=== PATIENT | female | born 1940 | race Caucasian/White ===

== ENCOUNTER 2017-01-17 16:49 | Inpatient (IN) | payer MEDICARE, OTHER ==
[~2017-01-17] VITALS: Ht 154.9 cm; Wt 55.5 kg
--- NOTE | 2017-01-17 17:18 | PHYS DOC ---
Adult General HPI HPI Patient is a 76 her old female presenting to the emergency department for evaluation of mostly visual hallucinations. Reportedly she has been having these hallucinations since at least July 2015 when she moved into her new house but daughter says that it was going on before then as well. Family and home health nurse who is present think that it has become much worse over the past 5- 7 months. It started out as mostly animals that she would see in her house and then it was a couple and that was larger groups of people and she describes "tramps and bearded men in red hats" that are in her house and she walks around with her purse in her arm as she thinks that she is going to be robbed. She has called the police multiple times but obviously there is nothing present. Patient has never been diagnosed with a psychiatric condition per home health and daughter. Reportedly home health nurse talked to Dr. Mcpherson on the phone and he recommended that she comes to the emergency department for evaluation and that if she is medically cleared she would be a good candidate for geriatric psychiatry. Patient does not have any complaints and she is up ambulating in no acute distress. Review of Systems Review of Systems Constitutional: Denies fever or chills [] Eyes: Denies change in visual acuity, redness, or eye pain [] HENT: Denies nasal congestion or sore throat [] Respiratory: Denies cough or shortness of breath [] Cardiovascular: No additional information not addressed in HPI [] GI: Denies abdominal pain, nausea, vomiting, bloody stools or diarrhea [] : Denies dysuria or hematuria [] Musculoskeletal: Denies back pain or joint pain [] Integument: Denies rash or skin lesions [] Neurologic: Denies headache, focal weakness or sensory changes [] All other systems were reviewed and found to be within normal limits, except as documented in this note. Physical Exam Physical Exam Constitutional: Well developed, well nourished, no acute distress, non-toxic appearance. [] HENT: Normocephalic, atraumatic, bilateral external ears normal, oropharynx moist, no oral exudates, nose normal. [] Eyes: PERRLA, EOMI, conjunctiva normal, no discharge. [] Neck: Normal range of motion, no tenderness, supple, no stridor. [] Cardiovascular:Heart rate regular rhythm, no murmur [] Lungs & Thorax: Bilateral breath sounds clear to auscultation [] Abdomen: Bowel sounds normal, soft, no tenderness, no masses, no pulsatile masses. [] Skin: Warm, dry, no erythema, no rash. [] Back: No tenderness, no CVA tenderness. [] Extremities: No tenderness, no cyanosis, no clubbing, ROM intact, no edema. [] Neurologic: Alert and oriented X 3, normal motor function, normal sensory function, no focal deficits noted. [] EKG EKG Sinus rhythm at 71 beats per minutes with normal axis no obvious ST elevation or depression with overall lobe voltage in limb leads. Radiology/Procedures Radiology/Procedures CT head without contrast 01/17/2017 CLINICAL INDICATION: Altered mental status. TECHNIQUE: Multiple CT images of the head were obtained without contrast according to standard protocol. COMPARISON: None. *One or more of the following individualized dose reduction techniques were utilized for this examination: 1. Automated exposure control. 2. Adjustment of the mA and/or kV according to patient size. 3. Use of iterative reconstruction technique. Head findings: No acute intracranial hemorrhage or extra-axial fluid collection. Ventricles and subarachnoid spaces are normal in size and configuration for age. No midline shift. The basal cisterns are patent. There is mild periventricular white matter low attenuation compatible with mild nonspecific white matter disease. The visualized mastoid air cells and paranasal sinuses are well aerated. IMPRESSION: 1. No acute intracranial hemorrhage or mass effect. 2. Mild nonspecific white matter disease, likely related to chronic small vessel ischemic disease. Electronically signed by: Sterling Thompson MD (01/17/2017 5:43 PM) [facility] DICTATED AND SIGNED BY: STERLING THOMPSON MD DATE: 01/17/17 174 Course & Med Decision Making Course & Med Decision Making Patient appears medically stable at this time but she will get the required tests and then likely get a psychiatric screening. Will transfer care to Dr. Sears at 1800 while awaiting labs urine testing as well as psychiatric screening. Patient signed out to me at 1800 shift change. Patient is awaiting labs for medical clearance also pending acceptance to [facility]. Labs reviewed, calcium 11.1 parathyroid hormone ordered. Patient medically cleared for [facility] admission Dr. Gallegos is accepting. Lea Disclaimer Lea Disclaimer This electronic medical record was generated, in whole or in part, using a voice recognition dictation system. Departure Departure: Impression: Primary Impression: Hallucinations Additional Impression: Hypercalcemia Disposition: ADMITTED INPATIENT Condition: STABLE Referrals: NON,STAFF (PCP) Additional Instructions: [facility] admission Dr Gallegos is accepting. Problem Qualifiers OLIVE CRUZ DO Jan 17, 2017 17:18 BONNY CUNNINGHAM DO Jan 17, 2017 19:56
--- NOTE | 2017-01-17 17:46 | RAD ---
CT head without contrast 01/17/2017 CLINICAL INDICATION: Altered mental status. TECHNIQUE: Multiple CT images of the head were obtained without contrast according to standard protocol. COMPARISON: None. *One or more of the following individualized dose reduction techniques were utilized for this examination: 1. Automated exposure control. 2. Adjustment of the mA and/or kV according to patient size. 3. Use of iterative reconstruction technique. Head findings: No acute intracranial hemorrhage or extra-axial fluid collection. Ventricles and subarachnoid spaces are normal in size and configuration for age. No midline shift. The basal cisterns are patent. There is mild periventricular white matter low attenuation compatible with mild nonspecific white matter disease. The visualized mastoid air cells and paranasal sinuses are well aerated. IMPRESSION: 1. No acute intracranial hemorrhage or mass effect. 2. Mild nonspecific white matter disease, likely related to chronic small vessel ischemic disease. Electronically signed by: Raj Thompson MD (01/17/2017 5:43 PM) [facility]
[2017-01-17] MEDS ORDERED: ASPI325T8 PO (18:01)
[2017-01-17] MEDS ORDERED: DONE5TAB56 PO (18:01)
[2017-01-17] MEDS ORDERED: CHOL100013 PO (18:01)
[2017-01-17] MEDS ORDERED: AMLO5TAB4 PO (18:01)
[2017-01-17] MEDS ORDERED: INSU100I13 SQ (18:03)
[2017-01-17] MEDS ORDERED: INSU100C4 SQ (18:03)
[2017-01-17] MEDS ORDERED: MAGN400T22 PO (18:04)
[2017-01-17] MEDS ORDERED: POLY119P19 PO (18:04)
[2017-01-17] MEDS ORDERED: QUET25TA5 PO (18:06)
[2017-01-17] MEDS ORDERED: SENN-37 PO (18:06)
[2017-01-17] MEDS ORDERED: CRESTOR20 MG PO (18:06)
[2017-01-17] MEDS ORDERED: ACET325T9 PO (18:08)
--- NOTE | 2017-01-17 18:08 | EKG ---
[address] [address] Test Date: 2017-01-17 Test Time: 17:54:22 Pat Name: ZAHRAA ELLIOTT Department: Room: Gender: F Curb Setter: CADEN : 1940 Requested By: OLIVE CRUZ Order Number: [id number] Reading MD: Petar Ruiz MD Measurements Intervals [place] Rate: 71 P: 42 SC: 162 QRS: 22 QRSD: 70 T: 55 QT: 362 QTc: 398 Interpretive Statements SINUS RHYTHM Electronically Signed On 01-22-2017 10:35:52 CARBON SETTER by Petar Ruiz MD
[2017-01-17 18:18] LABS: BACTERIA,URINE FEW /HPF (0-FEW); BILIRUBIN,URINE NEG (NEG); CLARITY,URINE CLEAR; COLOR,URINE YELLOW; GLUCOSE,URINE 100 mg/dL (NEG); NITRITE,URINE NEG (NEG); RBC,URINE 0 /HPF (0-2); SQUAMOUS EPITHELIAL CELL,UR OCC /LPF; UROBILINOGEN,URINE 0.2 mg/dL (0.2 mg/dL); WBC,URINE OCC /HPF (0-4)
[2017-01-17 18:30] LABS: BASO # 0.1 x10^3/uL (0.0-0.2); BASO % 1 % (0-3); EOS # 0.2 x10^3/uL (0.0-0.7); EOS % 3 % (0-3); HEMATOCRIT 42.3 % (36.0-47.0); HEMOGLOBIN 13.9 g/dL (12.0-15.5); LYMPH # 1.6 x10^3/uL (1.0-4.8); LYMPH % 19 % (24-48); MEAN CORPUSCULAR HEMOGLOBIN 30 pg (25-35); MEAN CORPUSCULAR HGB CONC 33 g/dL (31-37); MEAN CORPUSCULAR VOLUME 92 fL (79-100); MONO # 0.5 x10^3/uL (0.0-1.1); MONO % 6 % (0-9); NEUT % 71 % (31-73); PLATELET COUNT 220 x10^3/uL (140-400); RED BLOOD COUNT 4.62 x10^6/uL (3.50-5.40); RED CELL DISTRIBUTION WIDTH 13.2 % (11.5-14.5); WHITE BLOOD COUNT 8.4 x10^3/uL (4.0-11.0)
[2017-01-17 18:38] LABS: BARBITURATES NEG (NEG); BENZODIAZEPINES NEG (NEG); CANNABINOIDS NEG (NEG); COCAINE NEG (NEG); METHADONE NEG (NEG); OPIATES NEG (NEG); PHENCYCLIDINE NEG (NEG)
[2017-01-17 18:39] LABS: AMPHETAMINE/METHAMPHETAMINE NEG (NEG)
[2017-01-17 18:49] LABS: ALBUMIN 4.5 g/dL (3.4-5.0); ALBUMIN/GLOBULIN RATIO 1.1 (1.0-1.7); CALCIUM 11.1 mg/dL (8.5-10.1); GFR 53.9; MAGNESIUM 2.2 mg/dL (1.8-2.4); TOTAL BILIRUBIN 0.4 mg/dL (0.2-1.0); TOTAL PROTEIN 8.6 g/dL (6.4-8.2)
[2017-01-17 18:58] LABS: ACETAMIN < 2.0 mcg/mL (10-30); ETHANOL < 10 mg/dL (0-10); SALIC 0.6 mg/dL (2.8-20.0)
[2017-01-17] MEDS ORDERED: ACETAMINOPHEN 325 MG TABLET PO PRN (21:00)
[2017-01-17] MEDS ORDERED: MAG HYDROX/AL HYDROX/SIMETH 30 ML ORAL.SUSP PO PRN (21:00)
[2017-01-17] MEDS ORDERED: METHYL SALICYLATE/MENTHOL TOPICAL OINTMENT 29GM TUBE. TP PRN (21:00)
--- NOTE | 2017-01-17 21:55 | PDOC ---
Exam Braxton Demential Exam: Braxton Note: Please also refer to the separate dictated note~for this date of service dictated separately.~Patient seen individually. Discussed the patient with Nursing staff reviewed the chart.~Reviewed interim history and current functioning. Reviewed vital signs,~Labs/ Radiology~and current medications noted below. Continue current treatment with the changes noted in the dictated addendum note Assessment: Vital Signs: Vital Signs Date Time Temp Pulse Resp B/P (MAP) Pulse Ox O2 Delivery O2 Flow Rate FiO2 01/17/17 20:34 98.0 78 18 146/78 (100) 98 01/17/17 17:36 Room Air Labs: Laboratory Tests Test 01/17/17 17:20 01/17/17 17:45 01/17/17 21:14 Urine Collection Type Unknown Urine Color Yellow Urine Clarity Clear Urine pH 6.0 Urine Specific [place] 1.020 Urine Protein Neg (NEG-TRACE) Urine Glucose (UA) 100 mg/dL (NEG) Urine Ketones (Stick) Neg mg/dL (NEG) Urine Blood Neg (NEG) Urine Nitrite Neg (NEG) Urine Bilirubin Neg (NEG) Urine Urobilinogen Dipstick 0.2 mg/dL (0.2 mg/dL) Urine Leukocyte Esterase Neg (NEG) Urine RBC 0 /HPF (0-2) Urine WBC Occ /HPF (0-4) Urine Squamous Epithelial Cells Occ /LPF Urine Bacteria Few /HPF (0-FEW) White Blood Count 8.4 x10^3/uL (4.0-11.0) Red Blood Count 4.62 x10^6/uL (3.50-5.40) Hemoglobin 13.9 g/dL (12.0-15.5) Hematocrit 42.3 % (36.0-47.0) Mean Corpuscular Volume 92 fL (79-100) Mean Corpuscular Hemoglobin 30 pg (25-35) Mean Corpuscular Hemoglobin Concent 33 g/dL (31-37) Red Cell Distribution Width 13.2 % (11.5-14.5) Platelet Count 220 x10^3/uL (140-400) Neutrophils (%) (Auto) 71 % (31-73) Lymphocytes (%) (Auto) 19 % (24-48) L Monocytes (%) (Auto) 6 % (0-9) Eosinophils (%) (Auto) 3 % (0-3) Basophils (%) (Auto) 1 % (0-3) Neutrophils # (Auto) 6.0 x10^3uL (1.8-7.7) Lymphocytes # (Auto) 1.6 x10^3/uL (1.0-4.8) Monocytes # (Auto) 0.5 x10^3/uL (0.0-1.1) Eosinophils # (Auto) 0.2 x10^3/uL (0.0-0.7) Basophils # (Auto) 0.1 x10^3/uL (0.0-0.2) Sodium Level 141 mmol/L (136-145) Potassium Level 4.0 mmol/L (3.5-5.1) Chloride Level 106 mmol/L (98-107) Carbon Dioxide Level 26 mmol/L (21-32) Anion Gap 9 (6-14) Blood Urea Nitrogen 13 mg/dL (7-20) Creatinine 1.0 mg/dL (0.6-1.0) Estimated GFR (Cockcroft-Gault) 53.9 BUN/Creatinine Ratio 13 (6-20) Glucose Level 124 mg/dL (70-99) H Calcium Level 11.1 mg/dL (8.5-10.1) H Magnesium Level 2.2 mg/dL (1.8-2.4) Total Bilirubin 0.4 mg/dL (0.2-1.0) Aspartate Amino Transferase (AST) 25 U/L (15-37) Alanine Aminotransferase (ALT) 27 U/L (14-59) Alkaline Phosphatase 137 U/L (46-116) H Troponin I Quantitative < 0.017 ng/mL (0-0.055) Total Protein 8.6 g/dL (6.4-8.2) H Albumin 4.5 g/dL (3.4-5.0) Albumin/Globulin Ratio 1.1 (1.0-1.7) Salicylates Level 0.6 mg/dL (2.8-20.0) L Salicylate Last Dose Date 01/17/17 Salicylate Last Dose Time 0000 Urine Opiates Screen Neg (NEG) Urine Methadone Screen Neg (NEG) Acetaminophen Level < 2.0 mcg/mL (10-30) L Acetaminophen Last Dose Date 01/17/17 Acetaminophen Last Dose Time 0000 Urine Barbiturates Neg (NEG) Urine Phencyclidine Screen Neg (NEG) Urine Amphetamine/Methamphetamine Neg (NEG) Urine Benzodiazepines Screen Neg (NEG) Urine Cocaine Screen Neg (NEG) Urine Cannabinoids Screen Neg (NEG) Ethyl Alcohol Level < 10 mg/dL (0-10) Urine Ethyl Alcohol Neg (NEG) Glucose (Fingerstick) 126 mg/dL (70-99) H Current Medications: Meds: Current Medications Acetaminophen (Tylenol) 650 mg PRN Q6HRS PRN PO PAIN / TEMP; Start 01/17/17 at 21:00 Multi-Ingredient Ointment (Analgesic [place]) 1 carleen PRN QID PRN TP MUSCLE PAIN; Start 01/17/17 at 21:00 Al Hydroxide/Mg Hydroxide (Mylanta Plus Xs) 15 ml PRN AFTMEALHC PRN PO DYSPEPSIA; Start 01/17/17 at 21:00 Magnesium Hydroxide (Milk Of Magnesia) 2,400 mg PRN QHS PRN PO CONSTIPATION; Start 01/17/17 at 21:00 Active Scripts Active Reported Tylenol (Acetaminophen) 325 Mg Tablet 1-2 Tab PO QID PRN Senokot-S Tablet (Sennosides/Docusate Sodium) 1 Each Tablet 1 Each PO DAILY Crestor (Rosuvastatin Calcium) 20 Mg Tablet 1 Tab PO DAILY Seroquel (Quetiapine Fumarate) 25 Mg Tablet 1 Tab PO QHS Glycolax (Polyethylene Glycol 3350) 119 Gm Powder 17 Gm PO DAILY Mag-Oxide (Magnesium Oxide) 400 Mg Tablet 1 Tab PO BID Novolog (Insulin Aspart) 100 Unit/1 Ml Cartridge 8 Unit SQ TIDWMEALS Lantus Solostar (Insulin Glargine,Hum.rec.anlog) 100 Unit/1 Ml Insuln.pen 30 Unit SQ QHS Aricept (Donepezil Hcl) 5 Mg Tablet 1 Tab PO QHS Vitamin D (Cholecalciferol (Vitamin D3)) 1,000 Unit Capsule 1 Cap PO DAILY Aspirin 325 Mg Tablet 1 Tab PO DAILY Norvasc (Amlodipine Besylate) 5 Mg Tablet 1 Tab PO DAILY Diagnosis: Problems: (1) Hypercalcemia (2) Hallucinations CONNIE PRADO MD Jan 17, 2017 21:55
[2017-01-17] MEDS ORDERED: QUEtiapine 25 MG TABLET. PO SCH (22:00)
[2017-01-17] MEDS: DONEPEZIL HCL 5 MG TABLET. PO SCH (23:03)
[2017-01-18 06:55] VITALS: BP 145/71
[2017-01-18 09:00] VITALS: BP 145/71
[2017-01-18] MEDS ORDERED: CHOLECALCIFEROL (VITAMIN D3) 1,000 UNIT TABLET PO SCH (09:00)
[2017-01-18] MEDS: SENNOSIDES/DOCUSATE 8.6/50MG TABLET. PO SCH (09:20)
[2017-01-18] MEDS: ASPIRIN 325 MG TABLET PO SCH (09:20)
[2017-01-18] MEDS: POLYETHYLENE GLYCOL 3350 17 GM PACKET. PO SCH (09:20)
[2017-01-18] MEDS: MAGNESIUM OXIDE 400 MG TABLET PO SCH (09:21)
[2017-01-18] MEDS: amLODIPine BESYLATE 5 MG TABLET PO SCH (09:21)
[2017-01-18] MEDS: INSULIN ASPART 300 UNITS/3 ML INSULN.PEN SQ SCH ×3 (09:25→16:49)
[2017-01-18] MEDS: INSULIN DETEMIR 300 UNITS/3 ML INSULN.PEN. SQ SCH (09:26)
[2017-01-18 15:45] VITALS: BP 157/72
[2017-01-18 17:10] LABS: T3 TOTAL 129 ng/dL (71-180); THYROXINE 7.5 ug/dL (4.5-12.0)
[2017-01-18 17:11] LABS: CALCIUM PTH 11.6 mg/dL (8.7-10.3); CREATININE PTH 0.88 mg/dL (0.57-1.00); PTH INTACT 193 pg/mL (15-65)
[2017-01-18] MEDS: DONEPEZIL HCL 5 MG TABLET. PO SCH (19:43)
[2017-01-18] MEDS: risperiDONE 0.25 MG TABLET. PO SCH (19:44)
[2017-01-18] MEDS: ATORVASTATIN CALCIUM 20 MG TABLET PO SCH (19:45)
[2017-01-18] MEDS ORDERED: INSULIN DETEMIR 300 UNITS/3 ML INSULN.PEN. SQ SCH (21:00)
[2017-01-19 01:07] LABS: HEMOGLOBIN A1C 7.7 % (4.8-5.6)
[2017-01-19 06:24] VITALS: BP 127/73
[2017-01-19] MEDS: POLYETHYLENE GLYCOL 3350 17 GM PACKET. PO SCH (09:25)
[2017-01-19] MEDS: MAGNESIUM OXIDE 400 MG TABLET PO SCH (09:26)
[2017-01-19] MEDS: SENNOSIDES/DOCUSATE 8.6/50MG TABLET. PO SCH (09:26)
[2017-01-19] MEDS: ASPIRIN 325 MG TABLET PO SCH (09:26)
[2017-01-19] MEDS: amLODIPine BESYLATE 5 MG TABLET PO SCH (09:26)
[2017-01-19] MEDS: INSULIN DETEMIR 300 UNITS/3 ML INSULN.PEN. SQ SCH (09:27)
[2017-01-19] MEDS: INSULIN ASPART 300 UNITS/3 ML INSULN.PEN SQ SCH ×3 (09:28→18:20)
--- NOTE | 2017-01-19 11:56 | HP ---
ADMIT DATE: 01/18/2017 IDENTIFYING DATA: The patient is a 76-year-old female who was admitted via the Emergency Room at [facility] where she presented from home on account of active hallucinations, claiming there were 200 people in her house and they were everywhere with red hats. She is delusional and was directly referred to us by Dr. Mcpherson, who followed her up from a neurological standpoint, last seen in 12/2016. Despite the above marked psychosis, the patient has been reasonably oriented. CHIEF COMPLAINT: "Yes, these 200 people are in my house, they do all kinds of things, but they do not talk to me, but I can see them moving, changing clothes. The police said there was no one there, but I know they are there. May be it's my mind." HISTORY OF PRESENT ILLNESS: The patient has a history of worsening delusions over the past several weeks. She has been followed by Dr. Mcpherson from a psychiatric standpoint and failed this. Delusions mainly visual, fairly graphic and systemic at times, with insignificant auditory hallucinations, mainly visual. She does admit to being depressed, overwhelmed with all of this, having sleep and appetite changes. No active suicidal or homicidal ideation. No clear history of bipolar disorder. Memory has been reasonable, though some short term memory deficits may be evident. PAST PSYCHIATRIC HISTORY: As above. MEDICAL HISTORY: Hypertension, diabetes mellitus, hyperlipidemia status post hip fracture 2013, partial left hip replacement, history of cataract extraction, hysterectomy. ACCU-CHEKS: A.c. and at bedtime. CODE STATUS: Full, partial. ALLERGIES: PENICILLIN. DIET: Regular. MEDICATION: Takes medications whole. Ambulates independently. UA negative 01/17. CURRENT PSYCHOTROPICS: Aricept 5 mg a day, Seroquel 25 mg p.o. daily. REACTION TO HOSPITALIZATION: The patient accepting of this as the patient is reasonably cognitively intact, supportive family. MENTAL STATUS EXAMINATION: The patient is seen individually evening of 01/18. She has been oriented, very verbal, open forthcoming about the delusions, mainly visual delusions. Fairly systemic data is detailed, which she has some insight in that her mind maybe playing a role in this. No active suicidal or homicidal ideation. Attention span short, language function intact quite verbal, coherent, appropriate as I met with her. LABORATORY DATA: Reviewed. IMPRESSION: Psychotic disorder, unspecified; cognitive disorder, unspecified; rule out major depressive disorder with psychotic features. Rest diagnoses as above. PLAN: Admit to the Geropsychiatry unit at [facility]. I will see the patient daily individually from a psychiatric standpoint. Medical followup per Dr. Glasgow/Dr. Stewart. Continue current psychotropics. Change the Seroquel to Risperdal 0.25 mg p.o. at bedtime. CT head will be done if not completed recently. I will see the patient daily individually, followed medically by Dr. Glasgow/Dr. Stewart. Further changes in psychotropics will be determined post-baseline assessment. CONNIE PRADO MD DR: JUSTEN/nts JOB#: [id number] / [id number]
--- NOTE | 2017-01-19 12:54 | CONS ---
DATE OF CONSULTATION: 01/18/2017 REASON FOR CONSULTATION: Medical management. HISTORY OF PRESENT ILLNESS: The patient is a 76-year-old female patient who apparently was brought to the Emergency Room by her daughter for evaluation for mostly visual hallucination. Reportedly, the patient has been having these hallucinations since at least 07/2015 when she moved into her new house, but daughter says it was going on before then as well. Family and home health nurse who is present thinks that it has become much worse over the last 5-7 months. It started out as mostly animals that she would see in her house and then it was a couple and then larger group of people that she describes trams and bearded men in red hats that walk around with her, first in her arm. She thinks that she is going to be robbed. She has called the police multiple times, but obviously there was nothing present there. She has never had any psychiatric diagnoses before and apparently her daughter has spoken with Dr. Mcpherson who recommended that she should come to the Emergency Department for evaluation and if medically stable, she can be admitted to [facility]. I had a lengthy discussion with her and she said that she reiterated the same story. She does not seem to be disturbed. They do not bother her, they do not respond to her, but surprisingly she has never attempted to move out of the house, although apparently she has called the police multiple times. PAST MEDICAL HISTORY: Significant for hypertension, hyperlipidemia, type 2 diabetes mellitus. PAST SURGICAL HISTORY: Significant for hip fracture with a left hemiarthroplasty. She has ear surgery, bilateral cataract extraction, and partial hysterectomy. ALLERGIES: She is allergic to PENICILLIN. MEDICATIONS: She is currently on following medications: She is on Tylenol 650 mg 4 times a day, amlodipine 5 mg once a day, aspirin 325 mg once a day, cholecalciferol 1000 international units once a day, Aricept 5 mg at bedtime. She is on NovoLog insulin 8 units with meals and Lantus insulin 30 units at bedtime, magnesium oxide 400 mg once a day, polyethylene glycol 17 grams daily, quetiapine fumarate for Seroquel 25 mg at bedtime and Crestor 20 mg at bedtime, Senna S 1 tablet twice a day. FAMILY HISTORY: Unremarkable. SOCIAL HISTORY: She lives on her own. Her daughter lives nearby. She apparently does not smoke, drink alcohol or use any recreational drugs. PHYSICAL EXAMINATION: GENERAL: When I saw her, she was resting slightly propped up in bed, in no apparent respiratory distress, slightly pale, but no jaundice, cyanosis, lymphadenopathy, or thyromegaly. No jugular venous distension. No limb edema. VITAL SIGNS: Her heart rate was 71, blood pressure 157/72, temperature was 98, respiratory rate 20, and oxygen saturation was 100% on room air. The patient ambulates without assistance or assistive devices. LABORATORY DATA: Showed a white cell count of 8400, hemoglobin 14, hematocrit 42, MCV 92, and platelet count 220,000 with normal manual differential. Her chemistry showed that her serum sodium was 141, potassium 4, chloride 106, bicarbonate 26, anion gap of 9, BUN 13, creatinine 1, estimated GFR was 54 mL per minute. Her glucose was 124, calcium was 11.1, magnesium 2.2. Total bilirubin, AST, ALT were normal. Alkaline phosphatase slightly elevated at 137. Her total protein was 8.6, albumin was 4.5. Her serum iron was 32, TIBC 352 and percent saturation was 9%. Her triglycerides were 194, total cholesterol 172, LDL cholesterol 58, VLDL was 38, and HDL cholesterol was 76 with a ratio of 2. Her vitamin B12 was 874 picograms per mL. TSH was 2.587. Her total T4 was 7.5 and total T3 was 129. Her PTH was high at 193 and calcium was 11.6 and phosphorus was 3.4. Urinalysis was essentially unremarkable. Toxic screen was negative and RPR was still pending at the time of this dictation. ASSESSMENT AND PLAN: In summary, this is a 76-year-old female patient who was basically brought in with mostly visual hallucination that has been going on since she moved to the [facility] on July of last year. She apparently has never had any psychiatric diagnoses before. Medically, she is known to have high blood pressure, diabetes, hyperlipidemia. She did have bilateral cataract extractions. She definitely has hyperparathyroidism, most likely primary as her kidney function is normal and with her hypercalcemia, can be the cause for these visual hallucinations, something that is new to me. We could directly ultrasound her neck and consult the surgeon for parathyroidectomy. I will conduct see if this might be the explanation admission for her visual hallucinations. She did have a CT scan of the head without contrast, which showed that there are no acute intracranial hemorrhage or extraaxial fluid collection. Ventricles and subarachnoid spaces are normal in size and configuration for age. No midline shift. Basal cisterns are patent. There is mild periventricular white matter low attenuation compatible with mild nonspecific white matter disease. The visualized mastoid air cells and paranasal sinuses are well aerated. I will definitely discontinue vitamin D given her hypercalcemia. Thank you, Dr. Gallegos, for allowing me to participate in the care of this patient. KENIA PRINCE MD DR: GENIA/nani JOB#: [id number] / [id number]
[2017-01-19 16:47] VITALS: BP 159/69
[2017-01-19] MEDS: DONEPEZIL HCL 5 MG TABLET. PO SCH (19:50)
[2017-01-19] MEDS: ATORVASTATIN CALCIUM 20 MG TABLET PO SCH (19:50)
[2017-01-19] MEDS: risperiDONE 0.25 MG TABLET. PO SCH (19:50)
--- NOTE | 2017-01-19 20:18 | PDOC ---
Exam Note: Braxton Note: Please also refer to the separate dictated note~for this date of service dictated separately.~Patient seen individually. Discussed the patient with Nursing staff reviewed the chart.~Reviewed interim history and current functioning. Reviewed vital signs,~Labs/ Radiology~and current medications noted below. Continue current treatment with the changes noted in the dictated addendum note Assessment: Vital Signs: Vital Signs Date Time Temp Pulse Resp B/P (MAP) Pulse Ox O2 Delivery O2 Flow Rate FiO2 01/19/17 16:47 98.2 83 22 159/69 (99) 100 01/18/17 15:45 Room Air I&O Intake and Output 01/20/17 07:00 Intake Total 960 ml Balance 960 ml Intake Oral 960 ml Labs: Laboratory Tests Test 01/19/17 07:02 01/19/17 11:23 01/19/17 17:09 01/19/17 19:13 Glucose (Fingerstick) 150 mg/dL (70-99) H 235 mg/dL (70-99) H 112 mg/dL (70-99) H 212 mg/dL (70-99) H Current Medications: Meds: Current Medications Acetaminophen (Tylenol) 650 mg PRN Q6HRS PRN PO PAIN / TEMP; Start 01/17/17 at 21:00 Multi-Ingredient Ointment (Analgesic [place]) 1 carleen PRN QID PRN TP MUSCLE PAIN; Start 01/17/17 at 21:00 Al Hydroxide/Mg Hydroxide (Mylanta Plus Xs) 15 ml PRN AFTMEALHC PRN PO DYSPEPSIA; Start 01/17/17 at 21:00 Magnesium Hydroxide (Milk Of Magnesia) 2,400 mg PRN QHS PRN PO CONSTIPATION; Start 01/17/17 at 21:00 Donepezil HCl (Aricept) 5 mg QHS PO Last administered on 01/19/17 19:50; Start 01/17/17 at 22:00 Quetiapine Fumarate (SEROquel) 25 mg QHS PO Last administered on 01/17/17 23: 03; Start 01/17/17 at 22:00; Stop 01/18/17 at 18:51; Status DC Amlodipine Besylate (Norvasc) 5 mg DAILY PO Last administered on 01/19/17 09: 26; Start 01/18/17 at 09:00 Aspirin (Jaylon Aspirin) 325 mg DAILY PO Last administered on 01/19/17 09:26; Start 01/18/17 at 09:00 Magnesium Oxide (Magnesium Oxide) 200 mg DAILY PO Last administered on 09:26; Start 01/18/17 at 09:00 Polyethylene Glycol (miraLAX) 17 gm DAILY PO Last administered on 01/19/17 09 :25; Start 01/18/17 at 09:00 Senna/Docusate Sodium (Senna Plus) 1 tab DAILY PO Last administered on 09:26; Start 01/18/17 at 09:00 Vitamin D (Vitamin D3) 1,000 unit DAILY PO Last administered on 01/18/17 09:21 ; Start 01/18/17 at 09:00; Stop 01/18/17 at 17:41; Status DC Insulin Aspart (NovoLOG) 8 units TIDWMEALS SQ Last administered on 01/18/17 12 :44; Start 01/18/17 at 08:00; Stop 01/18/17 at 17:45; Status DC Insulin Detemir (Levemir) 30 units QHS SQ ; Start 01/18/17 at 21:00; Stop at 21:00; Status DC Atorvastatin Calcium (Lipitor) 80 mg QHS PO Last administered on 01/19/17 19: 50; Start 01/18/17 at 21:00 Insulin Detemir (Levemir) 30 units DAILY08 SQ Last administered on 01/19/17 09:27; Start 01/18/17 at 08:00 Insulin Aspart (NovoLOG) 6 units TIDWMEALS SQ Last administered on 01/19/17 18:20; Start 01/19/17 at 08:00 Risperidone (RisperDAL) 0.25 mg QHS PO Last administered on 01/19/17 19:50; Start 01/18/17 at 21:00 Fluoxetine HCl (PROzac) 10 mg DAILY PO ; Start 01/20/17 at 09:00 Active Scripts Active Reported Tylenol (Acetaminophen) 325 Mg Tablet 650 Mg PO QID PRN Senokot-S Tablet (Sennosides/Docusate Sodium) 1 Each Tablet 1 Each PO DAILY Crestor (Rosuvastatin Calcium) 20 Mg Tablet 20 Mg PO DAILY Seroquel (Quetiapine Fumarate) 25 Mg Tablet 25 Mg PO QHS Glycolax (Polyethylene Glycol 3350) 119 Gm Powder 17 Gm PO DAILY Mag-Oxide (Magnesium Oxide) 400 Mg Tablet 250 Mg PO DAILY Novolog (Insulin Aspart) 100 Unit/1 Ml Cartridge 8 Unit SQ TIDWMEALS Lantus Solostar (Insulin Glargine,Hum.rec.anlog) 100 Unit/1 Ml Insuln.pen 30 Unit SQ QHS Aricept (Donepezil Hcl) 5 Mg Tablet 5 Mg PO QHS Vitamin D (Cholecalciferol (Vitamin D3)) 1,000 Unit Capsule 1,000 Units PO DAILY Aspirin 325 Mg Tablet 325 Mg PO DAILY Norvasc (Amlodipine Besylate) 5 Mg Tablet 5 Mg PO DAILY I have reviewed the current psychotropics carefully including drug interactions. Risk benefit ratio favors no change other than as noted in my dictated progress note. Diagnosis: Problems: (1) Hypercalcemia (2) Hallucinations (3) Dementia, vascular, with delusions (4) Dementia in Alzheimer's disease with delusions (5) Psychosis, atypical (6) Impulse control disorder CONNIE PRADO MD Jan 19, 2017 20:18
[2017-01-20 06:12] VITALS: BP 154/73
[2017-01-20] MEDS: amLODIPine BESYLATE 5 MG TABLET PO SCH (08:12)
[2017-01-20] MEDS: POLYETHYLENE GLYCOL 3350 17 GM PACKET. PO SCH (08:12)
[2017-01-20] MEDS: SENNOSIDES/DOCUSATE 8.6/50MG TABLET. PO SCH (08:12)
[2017-01-20] MEDS: MAGNESIUM OXIDE 400 MG TABLET PO SCH (08:13)
[2017-01-20] MEDS: ASPIRIN 325 MG TABLET PO SCH (08:13)
[2017-01-20] MEDS: INSULIN ASPART 300 UNITS/3 ML INSULN.PEN SQ SCH ×3 (08:15→17:00)
[2017-01-20] MEDS: INSULIN DETEMIR 300 UNITS/3 ML INSULN.PEN. SQ SCH (08:16)
[2017-01-20] MEDS: FLUoxetine HCL 10 MG CAPSULE PO SCH (08:18)
[2017-01-20 16:17] VITALS: BP 126/72
[2017-01-20] MEDS: DONEPEZIL HCL 5 MG TABLET. PO SCH (17:32)
[2017-01-20] MEDS: risperiDONE 0.25 MG TABLET. PO SCH (17:32)
[2017-01-20] MEDS: ATORVASTATIN CALCIUM 20 MG TABLET PO SCH (17:32)
--- NOTE | 2017-01-20 20:07 | PDOC ---
Exam Note: Braxton Note: Please also refer to the separate dictated note~for this date of service dictated separately.~Patient seen individually. Discussed the patient with Nursing staff reviewed the chart.~Reviewed interim history and current functioning. Reviewed vital signs,~Labs/ Radiology~and current medications noted below. Continue current treatment with the changes noted in the dictated addendum note Assessment: Vital Signs: Vital Signs Date Time Temp Pulse Resp B/P (MAP) Pulse Ox O2 Delivery O2 Flow Rate FiO2 01/20/17 16:17 97.9 84 18 126/72 (90) 98 Room Air I&O Intake and Output 01/21/17 07:00 Intake Total 900 ml Balance 900 ml Intake Oral 900 ml Labs: Laboratory Tests Test 01/20/17 03:17 01/20/17 07:08 01/20/17 11:12 01/20/17 16:41 Glucose (Fingerstick) 167 mg/dL (70-99) H 269 mg/dL (70-99) H 358 mg/dL (70-99) H 105 mg/dL (70-99) H Test 01/20/17 19:09 Glucose (Fingerstick) 241 mg/dL (70-99) H Current Medications: Meds: Current Medications Acetaminophen (Tylenol) 650 mg PRN Q6HRS PRN PO PAIN / TEMP; Start 01/17/17 at 21:00 Multi-Ingredient Ointment (Analgesic [place]) 1 carleen PRN QID PRN TP MUSCLE PAIN; Start 01/17/17 at 21:00 Al Hydroxide/Mg Hydroxide (Mylanta Plus Xs) 15 ml PRN AFTMEALHC PRN PO DYSPEPSIA; Start 01/17/17 at 21:00 Magnesium Hydroxide (Milk Of Magnesia) 2,400 mg PRN QHS PRN PO CONSTIPATION; Start 01/17/17 at 21:00 Donepezil HCl (Aricept) 5 mg QHS PO Last administered on 01/20/17 17:32; Start 01/17/17 at 22:00 Quetiapine Fumarate (SEROquel) 25 mg QHS PO Last administered on 01/17/17 23: 03; Start 01/17/17 at 22:00; Stop 01/18/17 at 18:51; Status DC Amlodipine Besylate (Norvasc) 5 mg DAILY PO Last administered on 01/20/17 08: 12; Start 01/18/17 at 09:00 Aspirin (Jaylon Aspirin) 325 mg DAILY PO Last administered on 01/20/17 08:13; Start 01/18/17 at 09:00 Magnesium Oxide (Magnesium Oxide) 200 mg DAILY PO Last administered on 08:13; Start 01/18/17 at 09:00 Polyethylene Glycol (miraLAX) 17 gm DAILY PO Last administered on 01/20/17 08 :12; Start 01/18/17 at 09:00 Senna/Docusate Sodium (Senna Plus) 1 tab DAILY PO Last administered on 08:12; Start 01/18/17 at 09:00 Vitamin D (Vitamin D3) 1,000 unit DAILY PO Last administered on 01/18/17 09:21 ; Start 01/18/17 at 09:00; Stop 01/18/17 at 17:41; Status DC Insulin Aspart (NovoLOG) 8 units TIDWMEALS SQ Last administered on 01/18/17 12 :44; Start 01/18/17 at 08:00; Stop 01/18/17 at 17:45; Status DC Insulin Detemir (Levemir) 30 units QHS SQ ; Start 01/18/17 at 21:00; Stop at 21:00; Status DC Atorvastatin Calcium (Lipitor) 80 mg QHS PO Last administered on 01/20/17 17: 32; Start 01/18/17 at 21:00 Insulin Detemir (Levemir) 30 units DAILY08 SQ Last administered on 01/20/17 08:16; Start 01/18/17 at 08:00 Insulin Aspart (NovoLOG) 6 units TIDWMEALS SQ Last administered on 01/20/17 17:00; Start 01/19/17 at 08:00 Risperidone (RisperDAL) 0.25 mg QHS PO Last administered on 01/20/17 17:32; Start 01/18/17 at 21:00 Fluoxetine HCl (PROzac) 10 mg DAILY PO Last administered on 01/20/17 08:18; Start 01/20/17 at 09:00 Cinacalcet (Sensipar) 30 mg DAILY PO ; Start 01/21/17 at 09:00 Trazodone HCl (Desyrel) 50 mg PRN QHS PRN PO INSOMNIA, MAY REPEAT X1; Start at 20:00 Active Scripts Active Reported Tylenol (Acetaminophen) 325 Mg Tablet 650 Mg PO QID PRN Senokot-S Tablet (Sennosides/Docusate Sodium) 1 Each Tablet 1 Each PO DAILY Crestor (Rosuvastatin Calcium) 20 Mg Tablet 20 Mg PO DAILY Seroquel (Quetiapine Fumarate) 25 Mg Tablet 25 Mg PO QHS Glycolax (Polyethylene Glycol 3350) 119 Gm Powder 17 Gm PO DAILY Mag-Oxide (Magnesium Oxide) 400 Mg Tablet 250 Mg PO DAILY Novolog (Insulin Aspart) 100 Unit/1 Ml Cartridge 8 Unit SQ TIDWMEALS Lantus Solostar (Insulin Glargine,Hum.rec.anlog) 100 Unit/1 Ml Insuln.pen 30 Unit SQ QHS Aricept (Donepezil Hcl) 5 Mg Tablet 5 Mg PO QHS Vitamin D (Cholecalciferol (Vitamin D3)) 1,000 Unit Capsule 1,000 Units PO DAILY Aspirin 325 Mg Tablet 325 Mg PO DAILY Norvasc (Amlodipine Besylate) 5 Mg Tablet 5 Mg PO DAILY I have reviewed the current psychotropics carefully including drug interactions. Risk benefit ratio favors no change other than as noted in my dictated progress note. Diagnosis: Problems: (1) Hypercalcemia (2) Hallucinations (3) Dementia, vascular, with delusions (4) Dementia in Alzheimer's disease with delusions (5) Psychosis, atypical (6) Impulse control disorder CONNIE PRADO MD Jan 20, 2017 20:07
[2017-01-20] MEDS: traZODone 50 MG TABLET. PO PRN (21:00)
[2017-01-21 06:49] VITALS: BP 113/60
[2017-01-21] MEDS: SENNOSIDES/DOCUSATE 8.6/50MG TABLET. PO SCH (07:58)
[2017-01-21] MEDS: ASPIRIN 325 MG TABLET PO SCH (07:58)
[2017-01-21] MEDS: amLODIPine BESYLATE 5 MG TABLET PO SCH (07:59)
[2017-01-21] MEDS: FLUoxetine HCL 10 MG CAPSULE PO SCH (07:59)
[2017-01-21] MEDS: MAGNESIUM OXIDE 400 MG TABLET PO SCH (07:59)
[2017-01-21] MEDS: INSULIN ASPART 300 UNITS/3 ML INSULN.PEN SQ SCH ×3 (08:00→17:00)
[2017-01-21] MEDS: INSULIN DETEMIR 300 UNITS/3 ML INSULN.PEN. SQ SCH (08:01)
[2017-01-21] MEDS: POLYETHYLENE GLYCOL 3350 17 GM PACKET. PO SCH (08:02)
--- NOTE | 2017-01-21 08:33 | PN ---
DATE: 01/19/2017 PSYCHIATRIC PROGRESS NOTE This is a late entry 01/19/2017, covers elements not covered in my initial note of 01/19/2017. SUBJECTIVE: I met with the patient the evening of 01/19/2017. The patient remains fairly oriented, but clearly still psychotic. She still believed there are people in her room here. They do not talk to her, but she can see them. They turn the television on and off. She has been depressed, tearful. Reportedly, has had a "tough life." She talked about being an only child, raised by rather controlling father. No sexual abuse was noted; however. She was unable to . REVIEW OF SYSTEMS: No CV, , pulmonary, eye, ENT system symptoms on review. MENTAL STATUS EXAM: Reasonably oriented. Speech coherent, anxious. Abstraction fair, computation impaired, language function intact. Mood and affect depressed, psychotic. LABORATORY DATA: Reviewed. IMPRESSION: Unchanged from initial note plus major depressive disorder with psychotic features. PLAN: Start Prozac 10 mg a day. Maintain Seroquel 25 mg daily, Aricept [address] head result awaited . Risk/benefit ratio favors no further change. CONNIE PRADO MD DR: JUSTEN/nani JOB#: [id number] / [id number]
[2017-01-21 09:00] VITALS: BP 126/72
[2017-01-21] MEDS: CINACALCET HCL 30 MG TABLET PO SCH (09:00)
[2017-01-21 16:15] VITALS: BP 155/64
[2017-01-21] MEDS: risperiDONE 0.25 MG TABLET. PO SCH (17:45)
[2017-01-21] MEDS: DONEPEZIL HCL 5 MG TABLET. PO SCH (17:45)
[2017-01-21] MEDS: ATORVASTATIN CALCIUM 20 MG TABLET PO SCH (17:45)
[2017-01-21] MEDS: traZODone 50 MG TABLET. PO PRN (17:46)
--- NOTE | 2017-01-21 20:17 | PDOC ---
Exam Note: Braxton Note: Please also refer to the separate dictated note~for this date of service dictated separately.~Patient seen individually. Discussed the patient with Nursing staff reviewed the chart.~Reviewed interim history and current functioning. Reviewed vital signs,~Labs/ Radiology~and current medications noted below. Continue current treatment with the changes noted in the dictated addendum note Assessment: Vital Signs: Vital Signs Date Time Temp Pulse Resp B/P (MAP) Pulse Ox O2 Delivery O2 Flow Rate FiO2 01/21/17 16:15 97.7 85 20 155/64 (94) 99 Room Air I&O Intake and Output 01/22/17 07:00 Intake Total 1140 ml Balance 1140 ml Intake Oral 1140 ml Labs: Laboratory Tests Test 01/21/17 07:10 01/21/17 11:34 01/21/17 16:24 01/21/17 19:10 Glucose (Fingerstick) 184 mg/dL (70-99) H 296 mg/dL (70-99) H 127 mg/dL (70-99) H 120 mg/dL (70-99) H Current Medications: Meds: Current Medications Acetaminophen (Tylenol) 650 mg PRN Q6HRS PRN PO PAIN / TEMP; Start 01/17/17 at 21:00 Multi-Ingredient Ointment (Analgesic [place]) 1 carleen PRN QID PRN TP MUSCLE PAIN; Start 01/17/17 at 21:00 Al Hydroxide/Mg Hydroxide (Mylanta Plus Xs) 15 ml PRN AFTMEALHC PRN PO DYSPEPSIA; Start 01/17/17 at 21:00 Magnesium Hydroxide (Milk Of Magnesia) 2,400 mg PRN QHS PRN PO CONSTIPATION; Start 01/17/17 at 21:00 Donepezil HCl (Aricept) 5 mg QHS PO Last administered on 01/21/17 17:45; Start 01/17/17 at 22:00 Quetiapine Fumarate (SEROquel) 25 mg QHS PO Last administered on 01/17/17 23: 03; Start 01/17/17 at 22:00; Stop 01/18/17 at 18:51; Status DC Amlodipine Besylate (Norvasc) 5 mg DAILY PO Last administered on 01/21/17 07: 59; Start 01/18/17 at 09:00 Aspirin (Jaylon Aspirin) 325 mg DAILY PO Last administered on 01/21/17 07:58; Start 01/18/17 at 09:00 Magnesium Oxide (Magnesium Oxide) 200 mg DAILY PO Last administered on 07:59; Start 01/18/17 at 09:00 Polyethylene Glycol (miraLAX) 17 gm DAILY PO Last administered on 01/21/17 08 :02; Start 01/18/17 at 09:00 Senna/Docusate Sodium (Senna Plus) 1 tab DAILY PO Last administered on 07:58; Start 01/18/17 at 09:00 Vitamin D (Vitamin D3) 1,000 unit DAILY PO Last administered on 01/18/17 09:21 ; Start 01/18/17 at 09:00; Stop 01/18/17 at 17:41; Status DC Insulin Aspart (NovoLOG) 8 units TIDWMEALS SQ Last administered on 01/18/17 12 :44; Start 01/18/17 at 08:00; Stop 01/18/17 at 17:45; Status DC Insulin Detemir (Levemir) 30 units QHS SQ ; Start 01/18/17 at 21:00; Stop at 21:00; Status DC Atorvastatin Calcium (Lipitor) 80 mg QHS PO Last administered on 01/21/17 17: 45; Start 01/18/17 at 21:00 Insulin Detemir (Levemir) 30 units DAILY08 SQ Last administered on 01/21/17 08:01; Start 01/18/17 at 08:00 Insulin Aspart (NovoLOG) 6 units TIDWMEALS SQ Last administered on 01/21/17 17:00; Start 01/19/17 at 08:00 Risperidone (RisperDAL) 0.25 mg QHS PO Last administered on 01/21/17 17:45; Start 01/18/17 at 21:00 Fluoxetine HCl (PROzac) 10 mg DAILY PO Last administered on 01/21/17 07:59; Start 01/20/17 at 09:00 Cinacalcet (Sensipar) 30 mg DAILY PO Last administered on 01/21/17 09:00; Start 01/21/17 at 09:00 Trazodone HCl (Desyrel) 50 mg PRN QHS PRN PO INSOMNIA, MAY REPEAT X1 Last administered on 01/21/17t 17:46; Start 01/20/17 at 20:00 Active Scripts Active Reported Tylenol (Acetaminophen) 325 Mg Tablet 650 Mg PO QID PRN Senokot-S Tablet (Sennosides/Docusate Sodium) 1 Each Tablet 1 Each PO DAILY Crestor (Rosuvastatin Calcium) 20 Mg Tablet 20 Mg PO DAILY Seroquel (Quetiapine Fumarate) 25 Mg Tablet 25 Mg PO QHS Glycolax (Polyethylene Glycol 3350) 119 Gm Powder 17 Gm PO DAILY Mag-Oxide (Magnesium Oxide) 400 Mg Tablet 250 Mg PO DAILY Novolog (Insulin Aspart) 100 Unit/1 Ml Cartridge 8 Unit SQ TIDWMEALS Lantus Solostar (Insulin Glargine,Hum.rec.anlog) 100 Unit/1 Ml Insuln.pen 30 Unit SQ QHS Aricept (Donepezil Hcl) 5 Mg Tablet 5 Mg PO QHS Vitamin D (Cholecalciferol (Vitamin D3)) 1,000 Unit Capsule 1,000 Units PO DAILY Aspirin 325 Mg Tablet 325 Mg PO DAILY Norvasc (Amlodipine Besylate) 5 Mg Tablet 5 Mg PO DAILY I have reviewed the current psychotropics carefully including drug interactions. Risk benefit ratio favors no change other than as noted in my dictated progress note. Diagnosis: Problems: (1) Hypercalcemia (2) Hypercalcemia (3) Hallucinations (4) Dementia, vascular, with delusions (5) Dementia in Alzheimer's disease with delusions (6) Psychosis, atypical (7) Impulse control disorder CONNIE PRADO MD Jan 21, 2017 20:17
[2017-01-22] MEDS: traZODone 50 MG TABLET. PO PRN ×2 (01:59→20:40)
[2017-01-22 06:07] VITALS: BP 113/61
[2017-01-22] MEDS: SENNOSIDES/DOCUSATE 8.6/50MG TABLET. PO SCH (08:29)
[2017-01-22] MEDS: ASPIRIN 325 MG TABLET PO SCH (08:29)
[2017-01-22] MEDS: POLYETHYLENE GLYCOL 3350 17 GM PACKET. PO SCH (08:29)
[2017-01-22] MEDS: MAGNESIUM OXIDE 400 MG TABLET PO SCH (08:30)
[2017-01-22] MEDS: amLODIPine BESYLATE 5 MG TABLET PO SCH (08:30)
[2017-01-22] MEDS: FLUoxetine HCL 10 MG CAPSULE PO SCH (08:30)
[2017-01-22] MEDS: CINACALCET HCL 30 MG TABLET PO SCH (08:31)
[2017-01-22] MEDS: INSULIN DETEMIR 300 UNITS/3 ML INSULN.PEN. SQ SCH (08:34)
[2017-01-22] MEDS: INSULIN ASPART 300 UNITS/3 ML INSULN.PEN SQ SCH ×3 (08:35→17:21)
[2017-01-22] MEDS: MAGNESIUM HYDROXIDE 2,400 MG/30 ML ORAL.SUSP. PO PRN (08:35)
[2017-01-22 16:26] VITALS: BP 152/71
[2017-01-22] MEDS: ATORVASTATIN CALCIUM 20 MG TABLET PO SCH (19:39)
[2017-01-22] MEDS: DONEPEZIL HCL 5 MG TABLET. PO SCH (19:39)
[2017-01-22] MEDS: risperiDONE 0.25 MG TABLET. PO SCH (19:39)
--- NOTE | 2017-01-22 20:24 | PDOC ---
Exam Note: Braxton Note: Please also refer to the separate dictated note~for this date of service dictated separately.~Patient seen individually. Discussed the patient with Nursing staff reviewed the chart.~Reviewed interim history and current functioning. Reviewed vital signs,~Labs/ Radiology~and current medications noted below. Continue current treatment with the changes noted in the dictated addendum note Assessment: Vital Signs: Vital Signs Date Time Temp Pulse Resp B/P (MAP) Pulse Ox O2 Delivery O2 Flow Rate FiO2 01/22/17 16:26 97.3 94 20 152/71 (98) 100 01/21/17 16:15 Room Air I&O Intake and Output 01/22/17 07:00 Intake Total 1260 ml Balance 1260 ml Intake Oral 1260 ml Labs: Laboratory Tests Test 01/22/17 08:14 01/22/17 11:26 01/22/17 16:38 01/22/17 19:13 Glucose (Fingerstick) 272 mg/dL (70-99) H 309 mg/dL (70-99) H 259 mg/dL (70-99) H 294 mg/dL (70-99) H Current Medications: Meds: Current Medications Acetaminophen (Tylenol) 650 mg PRN Q6HRS PRN PO PAIN / TEMP; Start 01/17/17 at 21:00 Multi-Ingredient Ointment (Analgesic [place]) 1 carleen PRN QID PRN TP MUSCLE PAIN; Start 01/17/17 at 21:00 Al Hydroxide/Mg Hydroxide (Mylanta Plus Xs) 15 ml PRN AFTMEALHC PRN PO DYSPEPSIA; Start 01/17/17 at 21:00 Magnesium Hydroxide (Milk Of Magnesia) 2,400 mg PRN QHS PRN PO CONSTIPATION Last administered on 01/22/17 08:35; Start 01/17/17 at 21:00 Donepezil HCl (Aricept) 5 mg QHS PO Last administered on 01/22/17 19:39; Start 01/17/17 at 22:00 Quetiapine Fumarate (SEROquel) 25 mg QHS PO Last administered on 01/17/17 23: 03; Start 01/17/17 at 22:00; Stop 01/18/17 at 18:51; Status DC Amlodipine Besylate (Norvasc) 5 mg DAILY PO Last administered on 01/22/17 08: 30; Start 01/18/17 at 09:00 Aspirin (Jaylon Aspirin) 325 mg DAILY PO Last administered on 01/22/17 08:29; Start 01/18/17 at 09:00 Magnesium Oxide (Magnesium Oxide) 200 mg DAILY PO Last administered on 08:30; Start 01/18/17 at 09:00 Polyethylene Glycol (miraLAX) 17 gm DAILY PO Last administered on 01/22/17 08 :29; Start 01/18/17 at 09:00 Senna/Docusate Sodium (Senna Plus) 1 tab DAILY PO Last administered on 08:29; Start 01/18/17 at 09:00 Vitamin D (Vitamin D3) 1,000 unit DAILY PO Last administered on 01/18/17 09:21 ; Start 01/18/17 at 09:00; Stop 01/18/17 at 17:41; Status DC Insulin Aspart (NovoLOG) 8 units TIDWMEALS SQ Last administered on 01/18/17 12 :44; Start 01/18/17 at 08:00; Stop 01/18/17 at 17:45; Status DC Insulin Detemir (Levemir) 30 units QHS SQ ; Start 01/18/17 at 21:00; Stop at 21:00; Status DC Atorvastatin Calcium (Lipitor) 80 mg QHS PO Last administered on 01/22/17 19: 39; Start 01/18/17 at 21:00 Insulin Detemir (Levemir) 30 units DAILY08 SQ Last administered on 01/22/17 08:34; Start 01/18/17 at 08:00 Insulin Aspart (NovoLOG) 6 units TIDWMEALS SQ Last administered on 01/22/17 17:21; Start 01/19/17 at 08:00 Risperidone (RisperDAL) 0.25 mg QHS PO Last administered on 01/22/17 19:39; Start 01/18/17 at 21:00 Fluoxetine HCl (PROzac) 10 mg DAILY PO Last administered on 01/22/17 08:30; Start 01/20/17 at 09:00 Cinacalcet (Sensipar) 30 mg DAILY PO Last administered on 01/22/17 08:31; Start 01/21/17 at 09:00 Trazodone HCl (Desyrel) 50 mg PRN QHS PRN PO INSOMNIA, MAY REPEAT X1 Last administered on 01/22/17t 01:59; Start 01/20/17 at 20:00 Active Scripts Active Reported Tylenol (Acetaminophen) 325 Mg Tablet 650 Mg PO QID PRN Senokot-S Tablet (Sennosides/Docusate Sodium) 1 Each Tablet 1 Each PO DAILY Crestor (Rosuvastatin Calcium) 20 Mg Tablet 20 Mg PO DAILY Seroquel (Quetiapine Fumarate) 25 Mg Tablet 25 Mg PO QHS Glycolax (Polyethylene Glycol 3350) 119 Gm Powder 17 Gm PO DAILY Mag-Oxide (Magnesium Oxide) 400 Mg Tablet 250 Mg PO DAILY Novolog (Insulin Aspart) 100 Unit/1 Ml Cartridge 8 Unit SQ TIDWMEALS Lantus Solostar (Insulin Glargine,Hum.rec.anlog) 100 Unit/1 Ml Insuln.pen 30 Unit SQ QHS Aricept (Donepezil Hcl) 5 Mg Tablet 5 Mg PO QHS Vitamin D (Cholecalciferol (Vitamin D3)) 1,000 Unit Capsule 1,000 Units PO DAILY Aspirin 325 Mg Tablet 325 Mg PO DAILY Norvasc (Amlodipine Besylate) 5 Mg Tablet 5 Mg PO DAILY I have reviewed the current psychotropics carefully including drug interactions. Risk benefit ratio favors no change other than as noted in my dictated progress note. Diagnosis: Problems: (1) Hypercalcemia (2) Hypercalcemia (3) Hallucinations (4) Dementia, vascular, with delusions (5) Dementia in Alzheimer's disease with delusions (6) Psychosis, atypical (7) Impulse control disorder CONNIE PRADO MD Jan 22, 2017 20:24
--- NOTE | 2017-01-23 05:06 | PN ---
DATE: 01/20/2017 PSYCHIATRIC PROGRESS NOTE This late entry 01/20/2017, covers elements not covered in my initial note of 01/20/2017. I met with the patient in the evening of 01/20/2017, a CT head shows chronic small vessel ischemic disease. The patient also has hyperparathyroidism being addressed by Dr. Stewart. She still has ongoing hallucinations, but believes a number of people around her have reduced. These are, as before, visual hallucinations, not auditory. REVIEW OF SYSTEMS: No CV, , pulmonary, eye, ENT system symptoms on review. MENTAL STATUS EXAM: Reasonably oriented. Speech coherent, pleasant, verbal, smiling as I met with her. Still has visual hallucinations. Attention span short. Language function intact. Mood and affect, lability is improved. LABORATORY DATA: Reviewed. IMPRESSION: Unchanged from my initial note. PLAN: Continue current psychotropics. We may need to increase her Risperdal, but she does have a past history of CVA in 2007, and I would like to be careful, so long as we are seeing improvement in the hallucinations at the lower dosage, I prefer not to increase just yet. MAN Darrel PRADO MD DR: JUSTEN/nani JOB#: [id number] / [id number]
[2017-01-23 06:14] VITALS: BP 114/64
[2017-01-23] MEDS: POLYETHYLENE GLYCOL 3350 17 GM PACKET. PO SCH (08:28)
[2017-01-23] MEDS: SENNOSIDES/DOCUSATE 8.6/50MG TABLET. PO SCH (08:29)
[2017-01-23] MEDS: ASPIRIN 325 MG TABLET PO SCH (08:29)
[2017-01-23] MEDS: CINACALCET HCL 30 MG TABLET PO SCH (08:29)
[2017-01-23] MEDS: amLODIPine BESYLATE 5 MG TABLET PO SCH (08:29)
[2017-01-23] MEDS: FLUoxetine HCL 10 MG CAPSULE PO SCH (08:29)
[2017-01-23] MEDS: MAGNESIUM OXIDE 400 MG TABLET PO SCH (08:30)
[2017-01-23] MEDS: INSULIN ASPART 300 UNITS/3 ML INSULN.PEN SQ SCH ×3 (08:31→18:08)
[2017-01-23] MEDS: INSULIN DETEMIR 300 UNITS/3 ML INSULN.PEN. SQ SCH ×2 (08:32→20:45)
--- NOTE | 2017-01-23 10:52 | PN ---
DATE: 01/21/2017 This late entry 01/21/2017 covers elements not covered in my initial note 01/21/2017. I met with the patient evening of 01/21/2017. The patient slept 9 and a quarter hours previous evening. She is asking the nursing staff "are you real" and when they responded affirmatively she was pleased and then had a regular conversation. This was her way to make sure what she was perceiving was in fact reality. Reviewed her past history of CVA in 2007. No CV, , pulmonary, eye, ENT system symptoms on review. MENTAL STATUS EXAM: Reasonably oriented. Speech coherent, pleasant, verbal, abstraction fair, computation impaired slept 9 and a quarter hours. No active suicidal or homicidal ideation. Visual hallucinations persists, but improved and she stated she could only see 10 people where as 2 or 3 days back, it was 200. LABORATORY DATA: Reviewed. IMPRESSION: Unchanged from initial note. PLAN: Continue current psychotropics mentioned in my initial note, Aricept, Risperdal, and Prozac along with trazodone p.r.n. CONNIE PRADO MD DR: JUSTEN/nani JOB#: [id number] / [id number]
[2017-01-23 17:02] VITALS: BP 141/50
--- NOTE | 2017-01-23 20:11 | PDOC ---
Exam Note: Braxton Note: Please also refer to the separate dictated note~for this date of service dictated separately.~Patient seen individually. Discussed the patient with Nursing staff reviewed the chart.~Reviewed interim history and current functioning. Reviewed vital signs,~Labs/ Radiology~and current medications noted below. Continue current treatment with the changes noted in the dictated addendum note Assessment: Vital Signs: Vital Signs Date Time Temp Pulse Resp B/P (MAP) Pulse Ox O2 Delivery O2 Flow Rate FiO2 01/23/17 17:02 97.4 76 18 141/50 (80) 100 01/23/17 06:14 Room Air I&O Intake and Output 01/23/17 07:00 Intake Total 1320 ml Balance 1320 ml Intake Oral 1320 ml Labs: Laboratory Tests Test 01/23/17 07:06 01/23/17 11:49 01/23/17 16:56 01/23/17 19:08 Glucose (Fingerstick) 131 mg/dL (70-99) H 253 mg/dL (70-99) H 93 mg/dL (70-99) 121 mg/dL (70-99) H Current Medications: Meds: Current Medications Acetaminophen (Tylenol) 650 mg PRN Q6HRS PRN PO PAIN / TEMP; Start 01/17/17 at 21:00 Multi-Ingredient Ointment (Analgesic [place]) 1 carleen PRN QID PRN TP MUSCLE PAIN; Start 01/17/17 at 21:00 Al Hydroxide/Mg Hydroxide (Mylanta Plus Xs) 15 ml PRN AFTMEALHC PRN PO DYSPEPSIA; Start 01/17/17 at 21:00 Magnesium Hydroxide (Milk Of Magnesia) 2,400 mg PRN QHS PRN PO CONSTIPATION Last administered on 01/22/17 08:35; Start 01/17/17 at 21:00 Donepezil HCl (Aricept) 5 mg QHS PO Last administered on 01/22/17 19:39; Start 01/17/17 at 22:00; Stop 01/23/17 at 18:33; Status DC Quetiapine Fumarate (SEROquel) 25 mg QHS PO Last administered on 01/17/17 23: 03; Start 01/17/17 at 22:00; Stop 01/18/17 at 18:51; Status DC Amlodipine Besylate (Norvasc) 5 mg DAILY PO Last administered on 01/23/17 08: 29; Start 01/18/17 at 09:00 Aspirin (Jaylon Aspirin) 325 mg DAILY PO Last administered on 01/23/17 08:29; Start 01/18/17 at 09:00 Magnesium Oxide (Magnesium Oxide) 200 mg DAILY PO Last administered on 08:30; Start 01/18/17 at 09:00 Polyethylene Glycol (miraLAX) 17 gm DAILY PO Last administered on 01/23/17 08 :28; Start 01/18/17 at 09:00 Senna/Docusate Sodium (Senna Plus) 1 tab DAILY PO Last administered on 08:29; Start 01/18/17 at 09:00 Vitamin D (Vitamin D3) 1,000 unit DAILY PO Last administered on 01/18/17 09:21 ; Start 01/18/17 at 09:00; Stop 01/18/17 at 17:41; Status DC Insulin Aspart (NovoLOG) 8 units TIDWMEALS SQ Last administered on 01/18/17 12 :44; Start 01/18/17 at 08:00; Stop 01/18/17 at 17:45; Status DC Insulin Detemir (Levemir) 30 units QHS SQ ; Start 01/18/17 at 21:00; Stop at 21:00; Status DC Atorvastatin Calcium (Lipitor) 80 mg QHS PO Last administered on 01/22/17 19: 39; Start 01/18/17 at 21:00 Insulin Detemir (Levemir) 30 units DAILY08 SQ Last administered on 01/23/17 08:32; Start 01/18/17 at 08:00 Insulin Aspart (NovoLOG) 6 units TIDWMEALS SQ Last administered on 01/23/17 08:31; Start 01/19/17 at 08:00; Stop 01/23/17 at 11:45; Status DC Risperidone (RisperDAL) 0.25 mg QHS PO Last administered on 01/22/17 19:39; Start 01/18/17 at 21:00 Fluoxetine HCl (PROzac) 10 mg DAILY PO Last administered on 01/23/17 08:29; Start 01/20/17 at 09:00 Cinacalcet (Sensipar) 30 mg DAILY PO Last administered on 01/23/17 08:29; Start 01/21/17 at 09:00 Trazodone HCl (Desyrel) 50 mg PRN QHS PRN PO INSOMNIA, MAY REPEAT X1 Last administered on 01/22/17 20:40; Start 01/20/17 at 20:00 Insulin Aspart (NovoLOG) 8 units TIDWMEALS SQ Last administered on 01/23/17 18:08; Start 01/23/17 at 12:15 Donepezil HCl (Aricept) 10 mg QHS PO ; Start 01/23/17 at 21:00 Active Scripts Active Reported Tylenol (Acetaminophen) 325 Mg Tablet 650 Mg PO QID PRN Senokot-S Tablet (Sennosides/Docusate Sodium) 1 Each Tablet 1 Each PO DAILY Crestor (Rosuvastatin Calcium) 20 Mg Tablet 20 Mg PO DAILY Seroquel (Quetiapine Fumarate) 25 Mg Tablet 25 Mg PO QHS Glycolax (Polyethylene Glycol 3350) 119 Gm Powder 17 Gm PO DAILY Mag-Oxide (Magnesium Oxide) 400 Mg Tablet 250 Mg PO DAILY Novolog (Insulin Aspart) 100 Unit/1 Ml Cartridge 8 Unit SQ TIDWMEALS Lantus Solostar (Insulin Glargine,Hum.rec.anlog) 100 Unit/1 Ml Insuln.pen 30 Unit SQ QHS Aricept (Donepezil Hcl) 5 Mg Tablet 5 Mg PO QHS Vitamin D (Cholecalciferol (Vitamin D3)) 1,000 Unit Capsule 1,000 Units PO DAILY Aspirin 325 Mg Tablet 325 Mg PO DAILY Norvasc (Amlodipine Besylate) 5 Mg Tablet 5 Mg PO DAILY I have reviewed the current psychotropics carefully including drug interactions. Risk benefit ratio favors no change other than as noted in my dictated progress note. Diagnosis: Problems: (1) Hypercalcemia (2) Hypercalcemia (3) Hallucinations (4) Dementia, vascular, with delusions (5) Dementia in Alzheimer's disease with delusions (6) Psychosis, atypical (7) Impulse control disorder CONNIE PRADO MD Jan 23, 2017 20:11
[2017-01-23] MEDS: risperiDONE 0.25 MG TABLET. PO SCH (20:42)
[2017-01-23] MEDS: DONEPEZIL HCL 10 MG TABLET PO SCH (20:43)
[2017-01-23] MEDS: ATORVASTATIN CALCIUM 20 MG TABLET PO SCH (20:43)
[2017-01-23] MEDS: traZODone 50 MG TABLET. PO PRN (20:43)
[2017-01-24 05:54] VITALS: BP 112/60
[2017-01-24] MEDS: ASPIRIN 325 MG TABLET PO SCH (07:44)
[2017-01-24] MEDS: SENNOSIDES/DOCUSATE 8.6/50MG TABLET. PO SCH (07:44)
[2017-01-24] MEDS: POLYETHYLENE GLYCOL 3350 17 GM PACKET. PO SCH (07:44)
[2017-01-24] MEDS: amLODIPine BESYLATE 5 MG TABLET PO SCH (07:44)
[2017-01-24] MEDS: FLUoxetine HCL 10 MG CAPSULE PO SCH (07:45)
[2017-01-24] MEDS: MAGNESIUM OXIDE 400 MG TABLET PO SCH (07:45)
[2017-01-24] MEDS: CINACALCET HCL 30 MG TABLET PO SCH (07:45)
[2017-01-24] MEDS: MAGNESIUM HYDROXIDE 2,400 MG/30 ML ORAL.SUSP. PO PRN (07:46)
[2017-01-24] MEDS: INSULIN ASPART 300 UNITS/3 ML INSULN.PEN SQ SCH ×3 (08:00→17:40)
[2017-01-24 09:46] LABS: BASO # 0.1 x10^3/uL (0.0-0.2); BASO % 1 % (0-3); EOS # 0.1 x10^3/uL (0.0-0.7); EOS % 1 % (0-3); HEMATOCRIT 34.8 % (36.0-47.0); HEMOGLOBIN 11.5 g/dL (12.0-15.5); LYMPH # 1.2 x10^3/uL (1.0-4.8); LYMPH % 16 % (24-48); MEAN CORPUSCULAR HEMOGLOBIN 30 pg (25-35); MEAN CORPUSCULAR HGB CONC 33 g/dL (31-37); MEAN CORPUSCULAR VOLUME 91 fL (79-100); MONO # 0.5 x10^3/uL (0.0-1.1); MONO % 6 % (0-9); NEUT % 76 % (31-73); PLATELET COUNT 178 x10^3/uL (140-400); RED BLOOD COUNT 3.82 x10^6/uL (3.50-5.40); RED CELL DISTRIBUTION WIDTH 12.9 % (11.5-14.5); WHITE BLOOD COUNT 7.9 x10^3/uL (4.0-11.0)
[2017-01-24 09:52] LABS: ALBUMIN 3.4 g/dL (3.4-5.0); ALBUMIN/GLOBULIN RATIO 1.1 (1.0-1.7); CALCIUM 9.6 mg/dL (8.5-10.1); CREATININE 0.8 mg/dL (0.6-1.0); GFR 69.7; MAGNESIUM 2.1 mg/dL (1.8-2.4); POTASSIUM 3.9 mmol/L (3.5-5.1); TOTAL BILIRUBIN 0.4 mg/dL (0.2-1.0); TOTAL PROTEIN 6.5 g/dL (6.4-8.2)
--- NOTE | 2017-01-24 11:45 | PN ---
DATE: 01/22/2017 This late entry 01/22/2017 covers elements not covered in my initial note of 01/22/2017. I met with the patient in the evening of 01/22/2017. The patient has been somewhat withdrawn, the evening of 01/22/2017 still having hallucinations, blood sugars somewhat elevated, anxious. Discussed with social service staff at some length earlier in the day on 01/22/2017. The daughter is wanting the patient discharged to follow up on her parathyroid and she will make an appointment outpatient for this in preparation for discharge. REVIEW OF SYSTEMS: No CV, , pulmonary, eye system symptoms on review. MENTAL STATUS EXAM: Reasonably oriented. Speech coherent, has some latency. Abstraction fair, computation impaired, language function intact. Mood and affect showing some improvement, psychosis persists, but is improved. LABORATORY DATA: Reviewed. IMPRESSION: Unchanged from initial note. PLAN: Continue current psychotropics mentioned in my initial note, may need to increase Risperdal in a day or so, and like to go avoid increasing it rapidly given her history of CVA in 2007. MAN Darrel PRADO MD DR: JUSTEN/nani JOB#: [id number] / [id number]
[2017-01-24 16:11] VITALS: BP 137/57
--- NOTE | 2017-01-24 20:18 | PDOC ---
Exam Note: Braxton Note: Please also refer to the separate dictated note~for this date of service dictated separately.~Patient seen individually. Discussed the patient with Nursing staff reviewed the chart.~Reviewed interim history and current functioning. Reviewed vital signs,~Labs/ Radiology~and current medications noted below. Continue current treatment with the changes noted in the dictated addendum note Assessment: Vital Signs: Vital Signs Date Time Temp Pulse Resp B/P (MAP) Pulse Ox O2 Delivery O2 Flow Rate FiO2 01/24/17 16:11 97.3 81 16 137/57 (83) 100 01/23/17 06:14 Room Air I&O Intake and Output 01/24/17 07:00 Intake Total 1000 ml Balance 1000 ml Intake Oral 1000 ml Labs: Laboratory Tests Test 01/24/17 07:20 01/24/17 07:45 01/24/17 09:22 01/24/17 11:49 Glucose (Fingerstick) 56 mg/dL (70-99) L 86 mg/dL (70-99) 184 mg/dL (70-99) H White Blood Count 7.9 x10^3/uL (4.0-11.0) Red Blood Count 3.82 x10^6/uL (3.50-5.40) Hemoglobin 11.5 g/dL (12.0-15.5) L Hematocrit 34.8 % (36.0-47.0) L Mean Corpuscular Volume 91 fL (79-100) Mean Corpuscular Hemoglobin 30 pg (25-35) Mean Corpuscular Hemoglobin Concent 33 g/dL (31-37) Red Cell Distribution Width 12.9 % (11.5-14.5) Platelet Count 178 x10^3/uL (140-400) Neutrophils (%) (Auto) 76 % (31-73) H Lymphocytes (%) (Auto) 16 % (24-48) L Monocytes (%) (Auto) 6 % (0-9) Eosinophils (%) (Auto) 1 % (0-3) Basophils (%) (Auto) 1 % (0-3) Neutrophils # (Auto) 6.0 x10^3uL (1.8-7.7) Lymphocytes # (Auto) 1.2 x10^3/uL (1.0-4.8) Monocytes # (Auto) 0.5 x10^3/uL (0.0-1.1) Eosinophils # (Auto) 0.1 x10^3/uL (0.0-0.7) Basophils # (Auto) 0.1 x10^3/uL (0.0-0.2) Sodium Level 138 mmol/L (136-145) Potassium Level 3.9 mmol/L (3.5-5.1) Chloride Level 103 mmol/L (98-107) Carbon Dioxide Level 28 mmol/L (21-32) Anion Gap 7 (6-14) Blood Urea Nitrogen 15 mg/dL (7-20) Creatinine 0.8 mg/dL (0.6-1.0) Estimated GFR (Cockcroft-Gault) 69.7 BUN/Creatinine Ratio 19 (6-20) Glucose Level 201 mg/dL (70-99) H Calcium Level 9.6 mg/dL (8.5-10.1) Magnesium Level 2.1 mg/dL (1.8-2.4) Total Bilirubin 0.4 mg/dL (0.2-1.0) Aspartate Amino Transferase (AST) 25 U/L (15-37) Alanine Aminotransferase (ALT) 31 U/L (14-59) Alkaline Phosphatase 111 U/L (46-116) Total Protein 6.5 g/dL (6.4-8.2) Albumin 3.4 g/dL (3.4-5.0) Albumin/Globulin Ratio 1.1 (1.0-1.7) Test 01/24/17 16:15 01/24/17 19:16 Glucose (Fingerstick) 137 mg/dL (70-99) H 93 mg/dL (70-99) Current Medications: Meds: Current Medications Acetaminophen (Tylenol) 650 mg PRN Q6HRS PRN PO PAIN / TEMP; Start 01/17/17 at 21:00 Multi-Ingredient Ointment (Analgesic [place]) 1 carleen PRN QID PRN TP MUSCLE PAIN; Start 01/17/17 at 21:00 Al Hydroxide/Mg Hydroxide (Mylanta Plus Xs) 15 ml PRN AFTMEALHC PRN PO DYSPEPSIA; Start 01/17/17 at 21:00 Magnesium Hydroxide (Milk Of Magnesia) 2,400 mg PRN QHS PRN PO CONSTIPATION Last administered on 01/24/17 07:46; Start 01/17/17 at 21:00 Donepezil HCl (Aricept) 5 mg QHS PO Last administered on 01/22/17 19:39; Start 01/17/17 at 22:00; Stop 01/23/17 at 18:33; Status DC Quetiapine Fumarate (SEROquel) 25 mg QHS PO Last administered on 01/17/17 23: 03; Start 01/17/17 at 22:00; Stop 01/18/17 at 18:51; Status DC Amlodipine Besylate (Norvasc) 5 mg DAILY PO Last administered on 01/24/17 07: 44; Start 01/18/17 at 09:00 Aspirin (Jaylon Aspirin) 325 mg DAILY PO Last administered on 01/24/17 07:44; Start 01/18/17 at 09:00 Magnesium Oxide (Magnesium Oxide) 200 mg DAILY PO Last administered on 07:45; Start 01/18/17 at 09:00 Polyethylene Glycol (miraLAX) 17 gm DAILY PO Last administered on 01/24/17 07 :44; Start 01/18/17 at 09:00 Senna/Docusate Sodium (Senna Plus) 1 tab DAILY PO Last administered on 07:44; Start 01/18/17 at 09:00 Vitamin D (Vitamin D3) 1,000 unit DAILY PO Last administered on 01/18/17 09:21 ; Start 01/18/17 at 09:00; Stop 01/18/17 at 17:41; Status DC Insulin Aspart (NovoLOG) 8 units TIDWMEALS SQ Last administered on 01/18/17 12 :44; Start 01/18/17 at 08:00; Stop 01/18/17 at 17:45; Status DC Insulin Detemir (Levemir) 30 units QHS SQ ; Start 01/18/17 at 21:00; Stop at 21:00; Status DC Atorvastatin Calcium (Lipitor) 80 mg QHS PO Last administered on 01/23/17 20: 43; Start 01/18/17 at 21:00 Insulin Detemir (Levemir) 30 units DAILY08 SQ Last administered on 01/23/17 20:45; Start 01/18/17 at 08:00 Insulin Aspart (NovoLOG) 6 units TIDWMEALS SQ Last administered on 01/23/17 08:31; Start 01/19/17 at 08:00; Stop 01/23/17 at 11:45; Status DC Risperidone (RisperDAL) 0.25 mg QHS PO Last administered on 01/23/17 20:42; Start 01/18/17 at 21:00; Stop 01/24/17 at 18:36; Status DC Fluoxetine HCl (PROzac) 10 mg DAILY PO Last administered on 01/24/17 07:45; Start 01/20/17 at 09:00 Cinacalcet (Sensipar) 30 mg DAILY PO Last administered on 01/24/17 07:45; Start 01/21/17 at 09:00 Trazodone HCl (Desyrel) 50 mg PRN QHS PRN PO INSOMNIA, MAY REPEAT X1 Last administered on 01/23/17 20:43; Start 01/20/17 at 20:00 Insulin Aspart (NovoLOG) 8 units TIDWMEALS SQ Last administered on 01/24/17 17:40; Start 01/23/17 at 12:15 Donepezil HCl (Aricept) 10 mg QHS PO Last administered on 01/23/17 20:43; Start 01/23/17 at 21:00 Risperidone (RisperDAL) 0.375 mg QHS PO ; Start 01/24/17 at 21:00 Active Scripts Active Reported Tylenol (Acetaminophen) 325 Mg Tablet 650 Mg PO QID PRN Senokot-S Tablet (Sennosides/Docusate Sodium) 1 Each Tablet 1 Each PO DAILY Crestor (Rosuvastatin Calcium) 20 Mg Tablet 20 Mg PO DAILY Seroquel (Quetiapine Fumarate) 25 Mg Tablet 25 Mg PO QHS Glycolax (Polyethylene Glycol 3350) 119 Gm Powder 17 Gm PO DAILY Mag-Oxide (Magnesium Oxide) 400 Mg Tablet 250 Mg PO DAILY Novolog (Insulin Aspart) 100 Unit/1 Ml Cartridge 8 Unit SQ TIDWMEALS Lantus Solostar (Insulin Glargine,Hum.rec.anlog) 100 Unit/1 Ml Insuln.pen 30 Unit SQ QHS Aricept (Donepezil Hcl) 5 Mg Tablet 5 Mg PO QHS Vitamin D (Cholecalciferol (Vitamin D3)) 1,000 Unit Capsule 1,000 Units PO DAILY Aspirin 325 Mg Tablet 325 Mg PO DAILY Norvasc (Amlodipine Besylate) 5 Mg Tablet 5 Mg PO DAILY I have reviewed the current psychotropics carefully including drug interactions. Risk benefit ratio favors no change other than as noted in my dictated progress note. Diagnosis: Problems: (1) Hypercalcemia (2) Hypercalcemia (3) Hallucinations (4) Dementia, vascular, with delusions (5) Dementia in Alzheimer's disease with delusions (6) Psychosis, atypical (7) Impulse control disorder CONNIE PRADO MD Jan 24, 2017 20:18
[2017-01-24] MEDS: ATORVASTATIN CALCIUM 20 MG TABLET PO SCH (20:38)
[2017-01-24] MEDS: DONEPEZIL HCL 10 MG TABLET PO SCH (20:38)
[2017-01-24] MEDS: traZODone 50 MG TABLET. PO PRN (20:39)
[2017-01-24] MEDS: risperiDONE 0.25 MG TABLET. PO SCH (20:40)
[2017-01-25 06:01] VITALS: BP 135/62
[2017-01-25] MEDS: CINACALCET HCL 30 MG TABLET PO SCH (08:12)
[2017-01-25] MEDS: FLUoxetine HCL 10 MG CAPSULE PO SCH (08:12)
[2017-01-25] MEDS: POLYETHYLENE GLYCOL 3350 17 GM PACKET. PO SCH (08:12)
[2017-01-25] MEDS: ASPIRIN 325 MG TABLET PO SCH (08:14)
[2017-01-25] MEDS: SENNOSIDES/DOCUSATE 8.6/50MG TABLET. PO SCH (08:14)
[2017-01-25] MEDS: amLODIPine BESYLATE 5 MG TABLET PO SCH (08:14)
[2017-01-25] MEDS: MAGNESIUM OXIDE 400 MG TABLET PO SCH (08:14)
[2017-01-25] MEDS: INSULIN DETEMIR 300 UNITS/3 ML INSULN.PEN. SQ SCH (08:16)
[2017-01-25] MEDS: INSULIN ASPART 300 UNITS/3 ML INSULN.PEN SQ SCH ×3 (08:18→17:28)
--- NOTE | 2017-01-25 09:22 | PN ---
DATE: 01/23/2017 PSYCHIATRIC PROGRESS NOTE This late entry 01/23/2017 covers elements not covered in my initial note, 01/23/2017. Met with the patient in the evening of 01/23/2017. Per nursing staff, daughter has an appointment for the patient at , end of this month for her hyperparathyroidism and the patient is agreeable to continuing hospitalization here as needed for her ongoing psychotic symptoms. She had a better mood morning of 01/23/2017. Denies seeing anything in the morning, but later in the day, she was still having the visual hallucinations. No CV, , pulmonary, eye, ENT system symptoms on review. MENTAL STATUS EXAM: Reasonably oriented. Speech coherent, has some latency. Abstraction fair, computation impaired, language function intact, attention span short. Mood and affect, lability is improved, less psychotic. LABORATORY DATA: Reviewed. 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 Rest unchanged from initial note. PLAN: Increase Aricept from 5 mg at bedtime to 10 mg at bedtime. Continue Risperdal 0.25 mg at bedtime, Prozac 10 mg a day, trazodone 50 mg at bedtime, july repeat x 1 p.r.n. insomnia. MAN Darrel PRADO MD DR: JUSTEN/nani JOB#: [id number] / [id number]
[2017-01-25] MEDS: MAGNESIUM HYDROXIDE 2,400 MG/30 ML ORAL.SUSP. PO PRN (12:05)
[2017-01-25 17:06] VITALS: BP 131/74
[2017-01-25] MEDS: traZODone 50 MG TABLET. PO PRN (20:45)
[2017-01-25] MEDS: ATORVASTATIN CALCIUM 20 MG TABLET PO SCH (20:45)
[2017-01-25] MEDS: DONEPEZIL HCL 10 MG TABLET PO SCH (20:45)
[2017-01-25] MEDS: risperiDONE 0.25 MG TABLET. PO SCH (20:45)
--- NOTE | 2017-01-25 20:48 | PDOC ---
Exam Note: Braxton Note: Please also refer to the separate dictated note~for this date of service dictated separately.~Patient seen individually. Discussed the patient with Nursing staff reviewed the chart.~Reviewed interim history and current functioning. Reviewed vital signs,~Labs/ Radiology~and current medications noted below. Continue current treatment with the changes noted in the dictated addendum note Assessment: Vital Signs: Vital Signs Date Time Temp Pulse Resp B/P (MAP) Pulse Ox O2 Delivery O2 Flow Rate FiO2 01/25/17 17:06 97.5 78 18 131/74 (93) 100 Room Air I&O Intake and Output 01/25/17 07:00 Intake Total 1080 ml Balance 1080 ml Intake Oral 1080 ml Labs: Laboratory Tests Test 01/25/17 07:55 01/25/17 11:54 01/25/17 17:05 01/25/17 19:11 Glucose (Fingerstick) 208 mg/dL (70-99) H 243 mg/dL (70-99) H 81 mg/dL (70-99) 155 mg/dL (70-99) H Current Medications: Meds: Current Medications Acetaminophen (Tylenol) 650 mg PRN Q6HRS PRN PO PAIN / TEMP; Start 01/17/17 at 21:00 Multi-Ingredient Ointment (Analgesic [place]) 1 carleen PRN QID PRN TP MUSCLE PAIN; Start 01/17/17 at 21:00 Al Hydroxide/Mg Hydroxide (Mylanta Plus Xs) 15 ml PRN AFTMEALHC PRN PO DYSPEPSIA; Start 01/17/17 at 21:00 Magnesium Hydroxide (Milk Of Magnesia) 2,400 mg PRN QHS PRN PO CONSTIPATION Last administered on 01/25/17 12:05; Start 01/17/17 at 21:00 Donepezil HCl (Aricept) 5 mg QHS PO Last administered on 01/22/17 19:39; Start 01/17/17 at 22:00; Stop 01/23/17 at 18:33; Status DC Quetiapine Fumarate (SEROquel) 25 mg QHS PO Last administered on 01/17/17 23: 03; Start 01/17/17 at 22:00; Stop 01/18/17 at 18:51; Status DC Amlodipine Besylate (Norvasc) 5 mg DAILY PO Last administered on 01/25/17 08: 14; Start 01/18/17 at 09:00 Aspirin (Jaylon Aspirin) 325 mg DAILY PO Last administered on 01/25/17 08:14; Start 01/18/17 at 09:00 Magnesium Oxide (Magnesium Oxide) 200 mg DAILY PO Last administered on 08:14; Start 01/18/17 at 09:00 Polyethylene Glycol (miraLAX) 17 gm DAILY PO Last administered on 01/25/17 08 :12; Start 01/18/17 at 09:00 Senna/Docusate Sodium (Senna Plus) 1 tab DAILY PO Last administered on 08:14; Start 01/18/17 at 09:00 Vitamin D (Vitamin D3) 1,000 unit DAILY PO Last administered on 01/18/17 09:21 ; Start 01/18/17 at 09:00; Stop 01/18/17 at 17:41; Status DC Insulin Aspart (NovoLOG) 8 units TIDWMEALS SQ Last administered on 01/18/17 12 :44; Start 01/18/17 at 08:00; Stop 01/18/17 at 17:45; Status DC Insulin Detemir (Levemir) 30 units QHS SQ ; Start 01/18/17 at 21:00; Stop at 21:00; Status DC Atorvastatin Calcium (Lipitor) 80 mg QHS PO Last administered on 01/25/17 20: 45; Start 01/18/17 at 21:00 Insulin Detemir (Levemir) 30 units DAILY08 SQ Last administered on 01/25/17 08:16; Start 01/18/17 at 08:00 Insulin Aspart (NovoLOG) 6 units TIDWMEALS SQ Last administered on 01/23/17 08:31; Start 01/19/17 at 08:00; Stop 01/23/17 at 11:45; Status DC Risperidone (RisperDAL) 0.25 mg QHS PO Last administered on 01/23/17 20:42; Start 01/18/17 at 21:00; Stop 01/24/17 at 18:36; Status DC Fluoxetine HCl (PROzac) 10 mg DAILY PO Last administered on 01/25/17 08:12; Start 01/20/17 at 09:00 Cinacalcet (Sensipar) 30 mg DAILY PO Last administered on 01/25/17 08:12; Start 01/21/17 at 09:00 Trazodone HCl (Desyrel) 50 mg PRN QHS PRN PO INSOMNIA, MAY REPEAT X1 Last administered on 01/25/17 20:45; Start 01/20/17 at 20:00 Insulin Aspart (NovoLOG) 8 units TIDWMEALS SQ Last administered on 01/25/17 17:28; Start 01/23/17 at 12:15 Donepezil HCl (Aricept) 10 mg QHS PO Last administered on 01/25/17 20:45; Start 01/23/17 at 21:00 Risperidone (RisperDAL) 0.375 mg QHS PO Last administered on 01/25/17 20:45; Start 01/24/17 at 21:00 Active Scripts Active Reported Tylenol (Acetaminophen) 325 Mg Tablet 650 Mg PO QID PRN Senokot-S Tablet (Sennosides/Docusate Sodium) 1 Each Tablet 1 Each PO DAILY Crestor (Rosuvastatin Calcium) 20 Mg Tablet 20 Mg PO DAILY Seroquel (Quetiapine Fumarate) 25 Mg Tablet 25 Mg PO QHS Glycolax (Polyethylene Glycol 3350) 119 Gm Powder 17 Gm PO DAILY Mag-Oxide (Magnesium Oxide) 400 Mg Tablet 250 Mg PO DAILY Novolog (Insulin Aspart) 100 Unit/1 Ml Cartridge 8 Unit SQ TIDWMEALS Lantus Solostar (Insulin Glargine,Hum.rec.anlog) 100 Unit/1 Ml Insuln.pen 30 Unit SQ QHS Aricept (Donepezil Hcl) 5 Mg Tablet 5 Mg PO QHS Vitamin D (Cholecalciferol (Vitamin D3)) 1,000 Unit Capsule 1,000 Units PO DAILY Aspirin 325 Mg Tablet 325 Mg PO DAILY Norvasc (Amlodipine Besylate) 5 Mg Tablet 5 Mg PO DAILY I have reviewed the current psychotropics carefully including drug interactions. Risk benefit ratio favors no change other than as noted in my dictated progress note. Diagnosis: Problems: (1) Hypercalcemia (2) Hypercalcemia (3) Hallucinations (4) Dementia, vascular, with delusions (5) Dementia in Alzheimer's disease with delusions (6) Psychosis, atypical (7) Impulse control disorder CONNIE PRADO MD Jan 25, 2017 20:48
[2017-01-26 06:17] VITALS: BP 120/61
[2017-01-26] MEDS: ASPIRIN 325 MG TABLET PO SCH (07:52)
[2017-01-26] MEDS: CINACALCET HCL 30 MG TABLET PO SCH (07:52)
[2017-01-26] MEDS: FLUoxetine HCL 10 MG CAPSULE PO SCH (07:53)
[2017-01-26] MEDS: SENNOSIDES/DOCUSATE 8.6/50MG TABLET. PO SCH (07:54)
[2017-01-26] MEDS: MAGNESIUM OXIDE 400 MG TABLET PO SCH (07:54)
[2017-01-26] MEDS: amLODIPine BESYLATE 5 MG TABLET PO SCH (07:55)
[2017-01-26] MEDS: POLYETHYLENE GLYCOL 3350 17 GM PACKET. PO SCH (07:55)
[2017-01-26] MEDS: INSULIN ASPART 300 UNITS/3 ML INSULN.PEN SQ SCH ×3 (07:57→18:16)
[2017-01-26] MEDS: INSULIN DETEMIR 300 UNITS/3 ML INSULN.PEN. SQ SCH (08:00)
[2017-01-26 16:33] VITALS: BP 138/71
[2017-01-26] MEDS: ATORVASTATIN CALCIUM 20 MG TABLET PO SCH (19:38)
[2017-01-26] MEDS: DONEPEZIL HCL 10 MG TABLET PO SCH (19:38)
[2017-01-26] MEDS: risperiDONE 0.25 MG TABLET. PO SCH (19:39)
[2017-01-26] MEDS: traZODone 50 MG TABLET. PO PRN (20:02)
--- NOTE | 2017-01-26 20:16 | PDOC ---
Exam Note: Braxton Note: Please also refer to the separate dictated note~for this date of service dictated separately.~Patient seen individually. Discussed the patient with Nursing staff reviewed the chart.~Reviewed interim history and current functioning. Reviewed vital signs,~Labs/ Radiology~and current medications noted below. Continue current treatment with the changes noted in the dictated addendum note Assessment: Vital Signs: Vital Signs Date Time Temp Pulse Resp B/P (MAP) Pulse Ox O2 Delivery O2 Flow Rate FiO2 01/26/17 16:33 98.0 72 18 138/71 (93) 97 Room Air I&O Intake and Output 01/26/17 07:00 Intake Total 1080 ml Balance 1080 ml Intake Oral 1080 ml Labs: Laboratory Tests Test 01/26/17 07:36 01/26/17 11:52 01/26/17 17:11 01/26/17 19:01 Glucose (Fingerstick) 106 mg/dL (70-99) H 143 mg/dL (70-99) H 98 mg/dL (70-99) 265 mg/dL (70-99) H Current Medications: Meds: Current Medications Acetaminophen (Tylenol) 650 mg PRN Q6HRS PRN PO PAIN / TEMP; Start 01/17/17 at 21:00 Multi-Ingredient Ointment (Analgesic [place]) 1 carleen PRN QID PRN TP MUSCLE PAIN; Start 01/17/17 at 21:00 Al Hydroxide/Mg Hydroxide (Mylanta Plus Xs) 15 ml PRN AFTMEALHC PRN PO DYSPEPSIA; Start 01/17/17 at 21:00 Magnesium Hydroxide (Milk Of Magnesia) 2,400 mg PRN QHS PRN PO CONSTIPATION Last administered on 01/25/17 12:05; Start 01/17/17 at 21:00 Donepezil HCl (Aricept) 5 mg QHS PO Last administered on 01/22/17 19:39; Start 01/17/17 at 22:00; Stop 01/23/17 at 18:33; Status DC Quetiapine Fumarate (SEROquel) 25 mg QHS PO Last administered on 01/17/17 23: 03; Start 01/17/17 at 22:00; Stop 01/18/17 at 18:51; Status DC Amlodipine Besylate (Norvasc) 5 mg DAILY PO Last administered on 01/26/17 07: 55; Start 01/18/17 at 09:00 Aspirin (Jaylon Aspirin) 325 mg DAILY PO Last administered on 01/26/17 07:52; Start 01/18/17 at 09:00 Magnesium Oxide (Magnesium Oxide) 200 mg DAILY PO Last administered on 07:54; Start 01/18/17 at 09:00 Polyethylene Glycol (miraLAX) 17 gm DAILY PO Last administered on 01/26/17 07 :55; Start 01/18/17 at 09:00 Senna/Docusate Sodium (Senna Plus) 1 tab DAILY PO Last administered on 07:54; Start 01/18/17 at 09:00 Vitamin D (Vitamin D3) 1,000 unit DAILY PO Last administered on 01/18/17 09:21 ; Start 01/18/17 at 09:00; Stop 01/18/17 at 17:41; Status DC Insulin Aspart (NovoLOG) 8 units TIDWMEALS SQ Last administered on 01/18/17 12 :44; Start 01/18/17 at 08:00; Stop 01/18/17 at 17:45; Status DC Insulin Detemir (Levemir) 30 units QHS SQ ; Start 01/18/17 at 21:00; Stop at 21:00; Status DC Atorvastatin Calcium (Lipitor) 80 mg QHS PO Last administered on 01/26/17 19: 38; Start 01/18/17 at 21:00 Insulin Detemir (Levemir) 30 units DAILY08 SQ Last administered on 01/26/17 08:00; Start 01/18/17 at 08:00 Insulin Aspart (NovoLOG) 6 units TIDWMEALS SQ Last administered on 01/23/17 08:31; Start 01/19/17 at 08:00; Stop 01/23/17 at 11:45; Status DC Risperidone (RisperDAL) 0.25 mg QHS PO Last administered on 01/23/17 20:42; Start 01/18/17 at 21:00; Stop 01/24/17 at 18:36; Status DC Fluoxetine HCl (PROzac) 10 mg DAILY PO Last administered on 01/26/17 07:53; Start 01/20/17 at 09:00 Cinacalcet (Sensipar) 30 mg DAILY PO Last administered on 01/26/17 07:52; Start 01/21/17 at 09:00 Trazodone HCl (Desyrel) 50 mg PRN QHS PRN PO INSOMNIA, MAY REPEAT X1 Last administered on 01/26/17 20:02; Start 01/20/17 at 20:00 Insulin Aspart (NovoLOG) 8 units TIDWMEALS SQ Last administered on 01/26/17 18:16; Start 01/23/17 at 12:15 Donepezil HCl (Aricept) 10 mg QHS PO Last administered on 01/26/17 19:38; Start 01/23/17 at 21:00 Risperidone (RisperDAL) 0.375 mg QHS PO Last administered on 01/26/17 19:39; Start 01/24/17 at 21:00 Active Scripts Active Reported Tylenol (Acetaminophen) 325 Mg Tablet 650 Mg PO QID PRN Senokot-S Tablet (Sennosides/Docusate Sodium) 1 Each Tablet 1 Each PO DAILY Crestor (Rosuvastatin Calcium) 20 Mg Tablet 20 Mg PO DAILY Seroquel (Quetiapine Fumarate) 25 Mg Tablet 25 Mg PO QHS Glycolax (Polyethylene Glycol 3350) 119 Gm Powder 17 Gm PO DAILY Mag-Oxide (Magnesium Oxide) 400 Mg Tablet 250 Mg PO DAILY Novolog (Insulin Aspart) 100 Unit/1 Ml Cartridge 8 Unit SQ TIDWMEALS Lantus Solostar (Insulin Glargine,Hum.rec.anlog) 100 Unit/1 Ml Insuln.pen 30 Unit SQ QHS Aricept (Donepezil Hcl) 5 Mg Tablet 5 Mg PO QHS Vitamin D (Cholecalciferol (Vitamin D3)) 1,000 Unit Capsule 1,000 Units PO DAILY Aspirin 325 Mg Tablet 325 Mg PO DAILY Norvasc (Amlodipine Besylate) 5 Mg Tablet 5 Mg PO DAILY I have reviewed the current psychotropics carefully including drug interactions. Risk benefit ratio favors no change other than as noted in my dictated progress note. Diagnosis: Problems: (1) Hypercalcemia (2) Hypercalcemia (3) Hallucinations (4) Dementia, vascular, with delusions (5) Dementia in Alzheimer's disease with delusions (6) Psychosis, atypical (7) Impulse control disorder CONNIE PRADO MD Jan 26, 2017 20:16
[2017-01-27 06:10] VITALS: BP 119/70
--- NOTE | 2017-01-27 08:05 | PN ---
DATE: 01/24/2017 This late entry 01/24/2017 covers elements not covered in my initial note. SUBJECTIVE: Met with the patient evening of 01/24/2017. The patient continues to have visual hallucinations off and on, but nursing staff fixated on being constipated. No CV, , pulmonary, eye system symptoms on review. MENTAL STATUS EXAM: Reasonably oriented. Speech coherent, abstraction fair, computation impaired. No suicidal or homicidal ideation. Attention span short. Language function intact. IMPRESSION: Unchanged from initial note. PLAN: Increase Risperdal to 0.375 mg p.o. at bedtime. Rest unchanged from initial note. MAN Darrel PRADO MD DR: JUSTEN/nani JOB#: [id number] / [id number]
--- NOTE | 2017-01-27 08:10 | PN ---
DATE: 01/25/2017 PSYCHIATRIC PROGRESS NOTE This late entry for 01/25/2017 covers elements not covered in my initial note of 01/25/2017. SUBJECTIVE: I met with the patient evening of 01/25/2017. Staffed at treatment team meeting in the morning with Madeline, her daughter attending. Reviewed the history at length, diagnosis, progress, current medications, discharge plans. She slept 7 hours. States the people she was seeing are gradually going away, but she is convinced they are at home. Complained of feeling cold in the evening as I met with her in the room. REVIEW OF SYSTEMS: No CV, , pulmonary, eye system symptoms on review. MENTAL STATUS EXAM: Reasonably oriented. Speech coherent, abstraction fair, computation impaired, language function intact, attention span short. Mood and affect, lability is improved. LABORATORY DATA: Reviewed. IMPRESSION: Unchanged from initial note. PLAN: No change from a psychiatric standpoint from my initial note including the increased Risperdal. CONNIE PRADO MD DR: JUSTEN/nani JOB#: [id number] / [id number]
[2017-01-27] MEDS: ASPIRIN 325 MG TABLET PO SCH (08:25)
[2017-01-27] MEDS: MAGNESIUM OXIDE 400 MG TABLET PO SCH (08:26)
[2017-01-27] MEDS: POLYETHYLENE GLYCOL 3350 17 GM PACKET. PO SCH (08:26)
[2017-01-27] MEDS: SENNOSIDES/DOCUSATE 8.6/50MG TABLET. PO SCH (08:26)
[2017-01-27] MEDS: amLODIPine BESYLATE 5 MG TABLET PO SCH (08:26)
[2017-01-27] MEDS: FLUoxetine HCL 10 MG CAPSULE PO SCH (08:27)
[2017-01-27] MEDS: CINACALCET HCL 30 MG TABLET PO SCH (08:27)
[2017-01-27] MEDS: INSULIN DETEMIR 300 UNITS/3 ML INSULN.PEN. SQ SCH (09:14)
[2017-01-27] MEDS: INSULIN ASPART 300 UNITS/3 ML INSULN.PEN SQ SCH ×3 (09:15→17:53)
[2017-01-27 16:11] VITALS: BP 113/66
[2017-01-27] MEDS: ATORVASTATIN CALCIUM 20 MG TABLET PO SCH (19:40)
[2017-01-27] MEDS: risperiDONE 0.25 MG TABLET. PO SCH (19:40)
[2017-01-27] MEDS: DONEPEZIL HCL 10 MG TABLET PO SCH (19:40)
[2017-01-27] MEDS: traZODone 50 MG TABLET. PO PRN (20:20)
--- NOTE | 2017-01-27 21:27 | PDOC ---
Exam Note: Braxton Note: Please also refer to the separate dictated note~for this date of service dictated separately.~Patient seen individually. Discussed the patient with Nursing staff reviewed the chart.~Reviewed interim history and current functioning. Reviewed vital signs,~Labs/ Radiology~and current medications noted below. Continue current treatment with the changes noted in the dictated addendum note Assessment: Vital Signs: Vital Signs Date Time Temp Pulse Resp B/P (MAP) Pulse Ox O2 Delivery O2 Flow Rate FiO2 01/27/17 16:11 98.1 77 16 113/66 (82) 98 01/26/17 16:33 Room Air I&O Intake and Output 01/27/17 07:00 Intake Total 1200 ml Balance 1200 ml Intake Oral 1200 ml Labs: Laboratory Tests Test 01/27/17 07:34 01/27/17 11:29 01/27/17 16:51 01/27/17 19:13 Glucose (Fingerstick) 146 mg/dL (70-99) H 241 mg/dL (70-99) H 82 mg/dL (70-99) 60 mg/dL (70-99) L Current Medications: Meds: Current Medications Acetaminophen (Tylenol) 650 mg PRN Q6HRS PRN PO PAIN / TEMP; Start 01/17/17 at 21:00 Multi-Ingredient Ointment (Analgesic [place]) 1 carleen PRN QID PRN TP MUSCLE PAIN; Start 01/17/17 at 21:00 Al Hydroxide/Mg Hydroxide (Mylanta Plus Xs) 15 ml PRN AFTMEALHC PRN PO DYSPEPSIA; Start 01/17/17 at 21:00 Magnesium Hydroxide (Milk Of Magnesia) 2,400 mg PRN QHS PRN PO CONSTIPATION Last administered on 01/25/17 12:05; Start 01/17/17 at 21:00 Donepezil HCl (Aricept) 5 mg QHS PO Last administered on 01/22/17 19:39; Start 01/17/17 at 22:00; Stop 01/23/17 at 18:33; Status DC Quetiapine Fumarate (SEROquel) 25 mg QHS PO Last administered on 01/17/17 23: 03; Start 01/17/17 at 22:00; Stop 01/18/17 at 18:51; Status DC Amlodipine Besylate (Norvasc) 5 mg DAILY PO Last administered on 01/27/17 08: 26; Start 01/18/17 at 09:00 Aspirin (Jaylon Aspirin) 325 mg DAILY PO Last administered on 01/27/17 08:25; Start 01/18/17 at 09:00 Magnesium Oxide (Magnesium Oxide) 200 mg DAILY PO Last administered on 08:26; Start 01/18/17 at 09:00 Polyethylene Glycol (miraLAX) 17 gm DAILY PO Last administered on 01/27/17 08 :26; Start 01/18/17 at 09:00 Senna/Docusate Sodium (Senna Plus) 1 tab DAILY PO Last administered on 08:26; Start 01/18/17 at 09:00 Vitamin D (Vitamin D3) 1,000 unit DAILY PO Last administered on 01/18/17 09:21 ; Start 01/18/17 at 09:00; Stop 01/18/17 at 17:41; Status DC Insulin Aspart (NovoLOG) 8 units TIDWMEALS SQ Last administered on 01/18/17 12 :44; Start 01/18/17 at 08:00; Stop 01/18/17 at 17:45; Status DC Insulin Detemir (Levemir) 30 units QHS SQ ; Start 01/18/17 at 21:00; Stop at 21:00; Status DC Atorvastatin Calcium (Lipitor) 80 mg QHS PO Last administered on 01/27/17 19: 40; Start 01/18/17 at 21:00 Insulin Detemir (Levemir) 30 units DAILY08 SQ Last administered on 01/27/17 09:14; Start 01/18/17 at 08:00 Insulin Aspart (NovoLOG) 6 units TIDWMEALS SQ Last administered on 01/23/17 08:31; Start 01/19/17 at 08:00; Stop 01/23/17 at 11:45; Status DC Risperidone (RisperDAL) 0.25 mg QHS PO Last administered on 01/23/17 20:42; Start 01/18/17 at 21:00; Stop 01/24/17 at 18:36; Status DC Fluoxetine HCl (PROzac) 10 mg DAILY PO Last administered on 11/18/17at 08:27; Start 01/20/17 at 09:00 Cinacalcet (Sensipar) 30 mg DAILY PO Last administered on 01/27/17 08:27; Start 01/21/17 at 09:00 Trazodone HCl (Desyrel) 50 mg PRN QHS PRN PO INSOMNIA, MAY REPEAT X1 Last administered on 01/27/17 20:20; Start 01/20/17 at 20:00 Insulin Aspart (NovoLOG) 8 units TIDWMEALS SQ Last administered on 01/27/17 17:53; Start 01/23/17 at 12:15 Donepezil HCl (Aricept) 10 mg QHS PO Last administered on 01/27/17 19:40; Start 01/23/17 at 21:00 Risperidone (RisperDAL) 0.375 mg QHS PO Last administered on 01/27/17 19:40; Start 01/24/17 at 21:00 Active Scripts Active Reported Tylenol (Acetaminophen) 325 Mg Tablet 650 Mg PO QID PRN Senokot-S Tablet (Sennosides/Docusate Sodium) 1 Each Tablet 1 Each PO DAILY Crestor (Rosuvastatin Calcium) 20 Mg Tablet 20 Mg PO DAILY Seroquel (Quetiapine Fumarate) 25 Mg Tablet 25 Mg PO QHS Glycolax (Polyethylene Glycol 3350) 119 Gm Powder 17 Gm PO DAILY Mag-Oxide (Magnesium Oxide) 400 Mg Tablet 250 Mg PO DAILY Novolog (Insulin Aspart) 100 Unit/1 Ml Cartridge 8 Unit SQ TIDWMEALS Lantus Solostar (Insulin Glargine,Hum.rec.anlog) 100 Unit/1 Ml Insuln.pen 30 Unit SQ QHS Aricept (Donepezil Hcl) 5 Mg Tablet 5 Mg PO QHS Vitamin D (Cholecalciferol (Vitamin D3)) 1,000 Unit Capsule 1,000 Units PO DAILY Aspirin 325 Mg Tablet 325 Mg PO DAILY Norvasc (Amlodipine Besylate) 5 Mg Tablet 5 Mg PO DAILY I have reviewed the current psychotropics carefully including drug interactions. Risk benefit ratio favors no change other than as noted in my dictated progress note. 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
[2017-01-28 06:28] VITALS: BP 116/46
[2017-01-28] MEDS: INSULIN ASPART 300 UNITS/3 ML INSULN.PEN SQ SCH ×3 (08:00→17:20)
[2017-01-28] MEDS: CINACALCET HCL 30 MG TABLET PO SCH (08:46)
[2017-01-28] MEDS: POLYETHYLENE GLYCOL 3350 17 GM PACKET. PO SCH (08:46)
[2017-01-28] MEDS: SENNOSIDES/DOCUSATE 8.6/50MG TABLET. PO SCH (08:46)
[2017-01-28] MEDS: MAGNESIUM OXIDE 400 MG TABLET PO SCH (08:47)
[2017-01-28] MEDS: amLODIPine BESYLATE 5 MG TABLET PO SCH (08:47)
[2017-01-28] MEDS: FLUoxetine HCL 10 MG CAPSULE PO SCH (08:47)
[2017-01-28] MEDS: ASPIRIN 325 MG TABLET PO SCH (08:47)
[2017-01-28] MEDS: INSULIN DETEMIR 300 UNITS/3 ML INSULN.PEN. SQ SCH (08:48)
[2017-01-28 16:14] VITALS: BP 135/72
[2017-01-28] MEDS: risperiDONE 0.25 MG TABLET. PO SCH (20:04)
[2017-01-28] MEDS: DONEPEZIL HCL 10 MG TABLET PO SCH (20:04)
[2017-01-28] MEDS: ATORVASTATIN CALCIUM 20 MG TABLET PO SCH (20:04)
--- NOTE | 2017-01-28 20:28 | PDOC ---
Exam Note: Braxton Note: Please also refer to the separate dictated note~for this date of service dictated separately.~Patient seen individually. Discussed the patient with Nursing staff reviewed the chart.~Reviewed interim history and current functioning. Reviewed vital signs,~Labs/ Radiology~and current medications noted below. Continue current treatment with the changes noted in the dictated addendum note Assessment: Vital Signs: Vital Signs Date Time Temp Pulse Resp B/P (MAP) Pulse Ox O2 Delivery O2 Flow Rate FiO2 01/28/17 16:14 98.0 70 18 135/72 (93) 96 01/26/17 16:33 Room Air I&O Intake and Output 01/28/17 07:00 Intake Total 1080 ml Balance 1080 ml Intake Oral 1080 ml Labs: Laboratory Tests Test 01/28/17 07:37 01/28/17 11:29 01/28/17 16:55 01/28/17 19:13 Glucose (Fingerstick) 128 mg/dL (70-99) H 242 mg/dL (70-99) H 67 mg/dL (70-99) L 134 mg/dL (70-99) H Current Medications: Meds: Current Medications Acetaminophen (Tylenol) 650 mg PRN Q6HRS PRN PO PAIN / TEMP; Start 01/17/17 at 21:00 Multi-Ingredient Ointment (Analgesic [place]) 1 carleen PRN QID PRN TP MUSCLE PAIN; Start 01/17/17 at 21:00 Al Hydroxide/Mg Hydroxide (Mylanta Plus Xs) 15 ml PRN AFTMEALHC PRN PO DYSPEPSIA; Start 01/17/17 at 21:00 Magnesium Hydroxide (Milk Of Magnesia) 2,400 mg PRN QHS PRN PO CONSTIPATION Last administered on 01/25/17 12:05; Start 01/17/17 at 21:00 Donepezil HCl (Aricept) 5 mg QHS PO Last administered on 01/22/17 19:39; Start 01/17/17 at 22:00; Stop 01/23/17 at 18:33; Status DC Quetiapine Fumarate (SEROquel) 25 mg QHS PO Last administered on 01/17/17 23: 03; Start 01/17/17 at 22:00; Stop 01/18/17 at 18:51; Status DC Amlodipine Besylate (Norvasc) 5 mg DAILY PO Last administered on 01/27/17 08: 26; Start 01/18/17 at 09:00 Aspirin (Jaylon Aspirin) 325 mg DAILY PO Last administered on 01/28/17 08:47; Start 01/18/17 at 09:00 Magnesium Oxide (Magnesium Oxide) 200 mg DAILY PO Last administered on 08:47; Start 01/18/17 at 09:00 Polyethylene Glycol (miraLAX) 17 gm DAILY PO Last administered on 01/28/17 08 :46; Start 01/18/17 at 09:00 Senna/Docusate Sodium (Senna Plus) 1 tab DAILY PO Last administered on 08:46; Start 01/18/17 at 09:00 Vitamin D (Vitamin D3) 1,000 unit DAILY PO Last administered on 01/18/17 09:21 ; Start 01/18/17 at 09:00; Stop 01/18/17 at 17:41; Status DC Insulin Aspart (NovoLOG) 8 units TIDWMEALS SQ Last administered on 01/18/17 12 :44; Start 01/18/17 at 08:00; Stop 01/18/17 at 17:45; Status DC Insulin Detemir (Levemir) 30 units QHS SQ ; Start 01/18/17 at 21:00; Stop at 21:00; Status DC Atorvastatin Calcium (Lipitor) 80 mg QHS PO Last administered on 01/28/17 20: 04; Start 01/18/17 at 21:00 Insulin Detemir (Levemir) 30 units DAILY08 SQ Last administered on 01/28/17 08:48; Start 01/18/17 at 08:00 Insulin Aspart (NovoLOG) 6 units TIDWMEALS SQ Last administered on 01/23/17 08:31; Start 01/19/17 at 08:00; Stop 01/23/17 at 11:45; Status DC Risperidone (RisperDAL) 0.25 mg QHS PO Last administered on 01/23/17 20:42; Start 01/18/17 at 21:00; Stop 01/24/17 at 18:36; Status DC Fluoxetine HCl (PROzac) 10 mg DAILY PO Last administered on 01/28/17 08:47; Start 01/20/17 at 09:00 Cinacalcet (Sensipar) 30 mg DAILY PO Last administered on 01/28/17 08:46; Start 01/21/17 at 09:00 Trazodone HCl (Desyrel) 50 mg PRN QHS PRN PO INSOMNIA, MAY REPEAT X1 Last administered on 01/27/17 20:20; Start 01/20/17 at 20:00 Insulin Aspart (NovoLOG) 8 units TIDWMEALS SQ Last administered on 01/28/17 17:20; Start 01/23/17 at 12:15 Donepezil HCl (Aricept) 10 mg QHS PO Last administered on 01/28/17 20:04; Start 01/23/17 at 21:00 Risperidone (RisperDAL) 0.375 mg QHS PO Last administered on 01/28/17 20:04; Start 01/24/17 at 21:00 Active Scripts Active Reported Tylenol (Acetaminophen) 325 Mg Tablet 650 Mg PO QID PRN Senokot-S Tablet (Sennosides/Docusate Sodium) 1 Each Tablet 1 Each PO DAILY Crestor (Rosuvastatin Calcium) 20 Mg Tablet 20 Mg PO DAILY Seroquel (Quetiapine Fumarate) 25 Mg Tablet 25 Mg PO QHS Glycolax (Polyethylene Glycol 3350) 119 Gm Powder 17 Gm PO DAILY Mag-Oxide (Magnesium Oxide) 400 Mg Tablet 250 Mg PO DAILY Novolog (Insulin Aspart) 100 Unit/1 Ml Cartridge 8 Unit SQ TIDWMEALS Lantus Solostar (Insulin Glargine,Hum.rec.anlog) 100 Unit/1 Ml Insuln.pen 30 Unit SQ QHS Aricept (Donepezil Hcl) 5 Mg Tablet 5 Mg PO QHS Vitamin D (Cholecalciferol (Vitamin D3)) 1,000 Unit Capsule 1,000 Units PO DAILY Aspirin 325 Mg Tablet 325 Mg PO DAILY Norvasc (Amlodipine Besylate) 5 Mg Tablet 5 Mg PO DAILY I have reviewed the current psychotropics carefully including drug interactions. Risk benefit ratio favors no change other than as noted in my dictated progress note. Diagnosis: Problems: (1) Hypercalcemia (2) Hypercalcemia (3) Hallucinations (4) Dementia, vascular, with delusions (5) Dementia in Alzheimer's disease with delusions (6) Psychosis, atypical (7) Impulse control disorder CONNIE PRADO MD Jan 28, 2017 20:28
--- NOTE | 2017-01-28 20:34 | PN ---
DATE: 01/26/2017 PSYCHIATRIC PROGRESS NOTE This late entry 01/26/2017 covers elements not covered in my initial note of 01/26/2017. SUBJECTIVE: I met with the patient in the evening of 01/26/2017. The patient is pleasant, compliant, interactive, daughter visited, still feels she sees the people around her, but there are fewer and going further away. REVIEW OF SYSTEMS: No CV, , pulmonary, eye system symptoms on review. Admitted to feeling cold. Nursing staff will adjust the room temperature. MENTAL STATUS EXAM: Reasonably oriented. Speech is coherent, anxious. Abstraction fair, computation impaired, language function intact. Mood and affect still somewhat anxious, at times labile, but improved. LABORATORIES: Reviewed. IMPRESSION: Unchanged from initial note. PLAN: No changes in my psychotropics from the initial note for now. MAN Darrel PRADO MD DR: JUSTEN/nani JOB#: [id number] / [id number]
[2017-01-28] MEDS: traZODone 50 MG TABLET. PO PRN (20:47)
--- NOTE | 2017-01-28 21:41 | PN ---
DATE: 01/27/2017 PSYCHIATRIC PROGRESS NOTE This late entry 01/27/2017 covers elements not covered in my initial note of 01/27/2017. SUBJECTIVE: I met with the patient in the evening of 01/27/2017. The patient has been tearful, upset at times, still seeing people around her, but they are less and going away, processed this at some length with her. REVIEW OF SYSTEMS: No CV, , pulmonary, eye system symptoms on review. MENTAL STATUS EXAM: Reasonably oriented. Speech is coherent, pleasant, anxious. Abstraction fair, computation impaired, language function intact. Attention span still somewhat short. No suicidal or homicidal ideation. IMPRESSION: Unchanged from initial note. PLAN: Continue psychotropics mentioned in my initial note. Given the risk/benefit ratio, I prefer not to increase Risperdal just we have to see how she does after addressing her parathyroid status before increasing the Risperdal. Rest unchanged from initial note. CONNIE PRADO MD DR: JUSTEN/nani JOB#: [id number] / [id number]
[2017-01-29 06:07] VITALS: BP 153/66
[2017-01-29] MEDS: ASPIRIN 325 MG TABLET PO SCH (09:55)
[2017-01-29] MEDS: amLODIPine BESYLATE 5 MG TABLET PO SCH (09:55)
[2017-01-29] MEDS: POLYETHYLENE GLYCOL 3350 17 GM PACKET. PO SCH (09:55)
[2017-01-29] MEDS: FLUoxetine HCL 10 MG CAPSULE PO SCH (09:56)
[2017-01-29] MEDS: SENNOSIDES/DOCUSATE 8.6/50MG TABLET. PO SCH (09:56)
[2017-01-29] MEDS: MAGNESIUM OXIDE 400 MG TABLET PO SCH (09:56)
[2017-01-29] MEDS: INSULIN DETEMIR 300 UNITS/3 ML INSULN.PEN. SQ SCH (09:58)
[2017-01-29] MEDS: INSULIN ASPART 300 UNITS/3 ML INSULN.PEN SQ SCH ×3 (09:59→16:41)
[2017-01-29] MEDS: CINACALCET HCL 30 MG TABLET PO SCH (10:02)
[2017-01-29 16:25] VITALS: BP 133/68
[2017-01-29] MEDS: MAGNESIUM HYDROXIDE 2,400 MG/30 ML ORAL.SUSP. PO PRN (17:39)
[2017-01-29] MEDS: risperiDONE 0.25 MG TABLET. PO SCH (19:36)
[2017-01-29] MEDS: ATORVASTATIN CALCIUM 20 MG TABLET PO SCH (19:37)
[2017-01-29] MEDS: DONEPEZIL HCL 10 MG TABLET PO SCH (19:38)
--- NOTE | 2017-01-29 20:08 | PDOC ---
Exam Note: Braxton Note: Please also refer to the separate dictated note~for this date of service dictated separately.~Patient seen individually. Discussed the patient with Nursing staff reviewed the chart.~Reviewed interim history and current functioning. Reviewed vital signs,~Labs/ Radiology~and current medications noted below. Continue current treatment with the changes noted in the dictated addendum note Assessment: Vital Signs: Vital Signs Date Time Temp Pulse Resp B/P (MAP) Pulse Ox O2 Delivery O2 Flow Rate FiO2 01/29/17 16:25 97.2 80 20 133/68 (89) 99 01/26/17 16:33 Room Air I&O Intake and Output 01/29/17 07:00 Intake Total 960 ml Balance 960 ml Intake Oral 960 ml Labs: Laboratory Tests Test 01/29/17 07:38 01/29/17 11:57 01/29/17 16:33 01/29/17 18:22 Glucose (Fingerstick) 129 mg/dL (70-99) H 215 mg/dL (70-99) H 62 mg/dL (70-99) L 153 mg/dL (70-99) H Test 01/29/17 19:10 Glucose (Fingerstick) 178 mg/dL (70-99) H Current Medications: Meds: Current Medications Acetaminophen (Tylenol) 650 mg PRN Q6HRS PRN PO PAIN / TEMP; Start 01/17/17 at 21:00 Multi-Ingredient Ointment (Analgesic [place]) 1 carleen PRN QID PRN TP MUSCLE PAIN; Start 01/17/17 at 21:00 Al Hydroxide/Mg Hydroxide (Mylanta Plus Xs) 15 ml PRN AFTMEALHC PRN PO DYSPEPSIA; Start 01/17/17 at 21:00 Magnesium Hydroxide (Milk Of Magnesia) 2,400 mg PRN QHS PRN PO CONSTIPATION Last administered on 01/29/17 17:39; Start 01/17/17 at 21:00 Donepezil HCl (Aricept) 5 mg QHS PO Last administered on 01/22/17 19:39; Start 01/17/17 at 22:00; Stop 01/23/17 at 18:33; Status DC Quetiapine Fumarate (SEROquel) 25 mg QHS PO Last administered on 01/17/17 23: 03; Start 01/17/17 at 22:00; Stop 01/18/17 at 18:51; Status DC Amlodipine Besylate (Norvasc) 5 mg DAILY PO Last administered on 01/29/17 09: 55; Start 01/18/17 at 09:00 Aspirin (Jaylon Aspirin) 325 mg DAILY PO Last administered on 01/29/17 09:55; Start 01/18/17 at 09:00 Magnesium Oxide (Magnesium Oxide) 200 mg DAILY PO Last administered on 09:56; Start 01/18/17 at 09:00 Polyethylene Glycol (miraLAX) 17 gm DAILY PO Last administered on 01/29/17 09 :55; Start 01/18/17 at 09:00 Senna/Docusate Sodium (Senna Plus) 1 tab DAILY PO Last administered on 09:56; Start 01/18/17 at 09:00 Vitamin D (Vitamin D3) 1,000 unit DAILY PO Last administered on 01/18/17 09:21 ; Start 01/18/17 at 09:00; Stop 01/18/17 at 17:41; Status DC Insulin Aspart (NovoLOG) 8 units TIDWMEALS SQ Last administered on 01/18/17 12 :44; Start 01/18/17 at 08:00; Stop 01/18/17 at 17:45; Status DC Insulin Detemir (Levemir) 30 units QHS SQ ; Start 01/18/17 at 21:00; Stop at 21:00; Status DC Atorvastatin Calcium (Lipitor) 80 mg QHS PO Last administered on 01/29/17 19: 37; Start 01/18/17 at 21:00 Insulin Detemir (Levemir) 30 units DAILY08 SQ Last administered on 01/29/17 09:58; Start 01/18/17 at 08:00 Insulin Aspart (NovoLOG) 6 units TIDWMEALS SQ Last administered on 01/23/17 08:31; Start 01/19/17 at 08:00; Stop 01/23/17 at 11:45; Status DC Risperidone (RisperDAL) 0.25 mg QHS PO Last administered on 01/23/17 20:42; Start 01/18/17 at 21:00; Stop 01/24/17 at 18:36; Status DC Fluoxetine HCl (PROzac) 10 mg DAILY PO Last administered on 01/29/17 09:56; Start 01/20/17 at 09:00 Cinacalcet (Sensipar) 30 mg DAILY PO Last administered on 01/29/17 10:02; Start 01/21/17 at 09:00 Trazodone HCl (Desyrel) 50 mg PRN QHS PRN PO INSOMNIA, MAY REPEAT X1 Last administered on 01/28/17 20:47; Start 01/20/17 at 20:00 Insulin Aspart (NovoLOG) 8 units TIDWMEALS SQ Last administered on 01/29/17 12:59; Start 01/23/17 at 12:15 Donepezil HCl (Aricept) 10 mg QHS PO Last administered on 01/29/17 19:38; Start 01/23/17 at 21:00 Risperidone (RisperDAL) 0.375 mg QHS PO Last administered on 01/29/17 19:36; Start 01/24/17 at 21:00 Active Scripts Active Reported Tylenol (Acetaminophen) 325 Mg Tablet 650 Mg PO QID PRN Senokot-S Tablet (Sennosides/Docusate Sodium) 1 Each Tablet 1 Each PO DAILY Crestor (Rosuvastatin Calcium) 20 Mg Tablet 20 Mg PO DAILY Seroquel (Quetiapine Fumarate) 25 Mg Tablet 25 Mg PO QHS Glycolax (Polyethylene Glycol 3350) 119 Gm Powder 17 Gm PO DAILY Mag-Oxide (Magnesium Oxide) 400 Mg Tablet 250 Mg PO DAILY Novolog (Insulin Aspart) 100 Unit/1 Ml Cartridge 8 Unit SQ TIDWMEALS Lantus Solostar (Insulin Glargine,Hum.rec.anlog) 100 Unit/1 Ml Insuln.pen 30 Unit SQ QHS Aricept (Donepezil Hcl) 5 Mg Tablet 5 Mg PO QHS Vitamin D (Cholecalciferol (Vitamin D3)) 1,000 Unit Capsule 1,000 Units PO DAILY Aspirin 325 Mg Tablet 325 Mg PO DAILY Norvasc (Amlodipine Besylate) 5 Mg Tablet 5 Mg PO DAILY I have reviewed the current psychotropics carefully including drug interactions. Risk benefit ratio favors no change other than as noted in my dictated progress note. 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
--- NOTE | 2017-01-30 05:26 | PN ---
DATE: 01/28/2017 This is a late entry 01/28/2017 covers elements not covered in my initial note 01/28/2017. I met with the patient in the evening of 01/28/2017. The patient states she feels less depressed and the visual hallucinations are "going away." She, however, is convinced that when she gets back home, they will all be there, all 200 of them. Processed this with her. REVIEW OF SYSTEMS: No CV, , pulmonary, eye, ENT system symptoms on review. MENTAL STATUS EXAM: Reasonably oriented. Speech coherent, abstraction fair, computation impaired, language function intact, somewhat anxious. No active suicidal or homicidal ideations. Psychotic symptoms are better. IMPRESSION: Unchanged from initial note. PLAN: Continue psychotropics mentioned in my initial note, may need to increase Risperdal in due course. MAN Darrel PRADO MD DR: JUSTEN/nani JOB#: [id number] / [id number]
[2017-01-30 06:18] VITALS: BP 130/60
[2017-01-30] MEDS: CINACALCET HCL 30 MG TABLET PO SCH (09:05)
[2017-01-30] MEDS: amLODIPine BESYLATE 5 MG TABLET PO SCH (09:05)
[2017-01-30] MEDS: SENNOSIDES/DOCUSATE 8.6/50MG TABLET. PO SCH (09:06)
[2017-01-30] MEDS: MAGNESIUM OXIDE 400 MG TABLET PO SCH (09:06)
[2017-01-30] MEDS: FLUoxetine HCL 10 MG CAPSULE PO SCH (09:07)
[2017-01-30] MEDS: POLYETHYLENE GLYCOL 3350 17 GM PACKET. PO SCH (09:07)
[2017-01-30] MEDS: ASPIRIN 325 MG TABLET PO SCH (09:07)
[2017-01-30] MEDS: INSULIN DETEMIR 300 UNITS/3 ML INSULN.PEN. SQ SCH (09:11)
[2017-01-30] MEDS: INSULIN ASPART 300 UNITS/3 ML INSULN.PEN SQ SCH ×3 (09:12→16:49)
--- NOTE | 2017-01-30 15:47 | PN ---
DATE: 01/29/2017 This note covers elements not covered in my initial note 01/29. SUBJECTIVE: I met with the patient morning of 01/29. Nursing staff reports, the patient has been stating that the hallucinations are going away. This is a continuation what she has been saying over the last day or so. REVIEW OF SYSTEMS: No CV, , pulmonary, eye, ENT system symptoms on review. MENTAL STATUS EXAM: Reasonably oriented. Speech is coherent, abstraction fair, computation impaired, language function intact. Psychotic symptoms are better. Mood and affect showing improvement. IMPRESSION: Unchanged from initial note. PLAN: No change from my initial note. Continue psychotropics mentioned in my initial note. May need to increase Risperdal in a day or so depending on her progress with the psychosis. MAN Darrel PRADO MD DR: JUSTEN/nani JOB#: [id number] / [id number]
[2017-01-30 16:23] VITALS: BP 116/58
[2017-01-30] MEDS: risperiDONE 0.25 MG TABLET. PO SCH (20:25)
[2017-01-30] MEDS: DONEPEZIL HCL 10 MG TABLET PO SCH (20:25)
[2017-01-30] MEDS: ATORVASTATIN CALCIUM 20 MG TABLET PO SCH (20:25)
[2017-01-31] MEDS ORDERED: ATORVASTATIN CA80 MG PO (00:17)
[2017-01-31] MEDS ORDERED: CINA30TA2 PO (00:20)
[2017-01-31] MEDS ORDERED: FLUO10TA PO (00:22)
[2017-01-31] MEDS ORDERED: INSU100I27 SQ (00:24)
[2017-01-31] MEDS ORDERED: MAG30ORA2 PO (00:25)
[2017-01-31] MEDS ORDERED: MAGN2400 PO (00:26)
[2017-01-31] MEDS ORDERED: METH29OI TP (00:27)
[2017-01-31] MEDS ORDERED: RISP0.2519 PO (00:29)
[2017-01-31] MEDS ORDERED: TRAZ50TA15 PO (00:31)
--- NOTE | 2017-01-31 01:11 | PN ---
DATE: 01/30/2017 SUBJECTIVE: The patient was seen today, met with the staff, chart reviewed and also covering for Dr. Gallegos. Staff reports no major problems. The patient is having difficulty following directions. The patient is exhibiting some emotional lability, also cognitive deficits and also preoccupied with the visual and auditory hallucinations. The patient states she sees people everywhere covered all over floor and the ahuja. The patient states even she was sitting on the toilet, he could see the faces on the floor. The patient feels that she does not have any privacy. OBSERVATION: VITAL SIGNS: Temperature 98.4, blood pressure 130/60, respirations 16, pulse 72, O2 sat 97%. GENERAL: Slept about 5 hours last night. IMPRESSION: Cognitive disorder, unspecified, also psychotic disorder, unspecified. PLAN: The patient will continue on the medications listed above. She is planned for discharge tomorrow to return home. Apparently, her daughter lives in same building will be supervising her. The patient will follow up with the primary care doctor. FLO THORNTON MD DR: ARNOLDO/nani JOB#: [id number] / [id number]
--- NOTE | 2017-01-31 04:31 | DS ---
DATE OF DISCHARGE: 01/31/2017 FINAL DIAGNOSES: AXIS I: 1. Psychotic disorder, unspecified. 2. Cognitive disorder, unspecified. 3. Major depressive disorder with psychotic features. AXIS II: None. AXIS III: Hypertension, diabetes mellitus, hyperlipidemia, partial left hip replacement, history of falls, cataract. REASON FOR ADMISSION: This 76-year-old female, who was initially evaluated at the Emergency Room at [facility] and presented with acute psychotic symptoms, visual hallucinations, seeing people faces everywhere on the ahuja, on the floor. The patient is also getting little anxious, confused, and also the patient is having problems with her vision. HISTORY OF PRESENT ILLNESS: The patient ____ presenting with psychotic symptoms including delusional thinking, paranoid, and also visual hallucinations for the past several weeks. During the hospitalization here, she was also admitted to having auditory hallucinations that people are talking to her. The patient apparently having difficulty dealing with the voices and the patient is not sleeping well and not able to take care of her needs. The patient also not showing some cognitive problems. HOSPITAL COURSE: The patient had a physical exam, routine lab work including CBC, chem profile, urinalysis, which were all within normal range except for slight increase in her blood sugar, that is from 102 to 178. Urinalysis was negative. The patient also had RPR titer and testing which was nonreactive. The patient was continued on amlodipine 5 mg daily, aspirin 325 mg daily, Lipitor 80 mg at night, Aricept 10 mg at night, Prozac 10 mg daily. She is also on insulin aspart 8 units subcutaneously t.i.d. with meals, insulin detemir 30 units subcutaneously daily q. 8 hours. The patient was also on Risperdal 0.375 mg at night, trazodone 50 mg at night p.r.n. The patient's behavior did improve. The patient is able to walk. The patient is also pleasant and she expressed some concerns because of her impaired vision. The patient is able to orient herself to her surroundings, able to ____ beginning to show cognitive deficits, mostly short-term memory deficits, and also lacking insight to her problems believing visual and auditory hallucinations are real. The patient did not have any side effects to the medications. The patient is medically stable. ____ return to home, but apparently her daughter ____. The patient will continue follow up with the primary care doctor. The patient will continue with the medications listed above. FLO THORNTON MD DR: ARNOLDO/nani JOB#: [id number] / [id number]
[2017-01-31 06:12] VITALS: BP 126/74
[2017-01-31] MEDS: ASPIRIN 325 MG TABLET PO SCH (08:30)
[2017-01-31] MEDS: SENNOSIDES/DOCUSATE 8.6/50MG TABLET. PO SCH (08:30)
[2017-01-31] MEDS: CINACALCET HCL 30 MG TABLET PO SCH (08:30)
[2017-01-31 08:31] VITALS: BP 126/74
[2017-01-31] MEDS: amLODIPine BESYLATE 5 MG TABLET PO SCH (08:31)
[2017-01-31] MEDS: POLYETHYLENE GLYCOL 3350 17 GM PACKET. PO SCH (08:31)
[2017-01-31] MEDS: FLUoxetine HCL 10 MG CAPSULE PO SCH (08:31)
[2017-01-31] MEDS: MAGNESIUM OXIDE 400 MG TABLET PO SCH (08:31)
[2017-01-31] MEDS: INSULIN ASPART 300 UNITS/3 ML INSULN.PEN SQ SCH ×2 (08:33→11:49)
[2017-01-31] MEDS: INSULIN DETEMIR 300 UNITS/3 ML INSULN.PEN. SQ SCH (08:35)
== END 2017-01-31 14:45 | disposition home health service (06) | DRG 885 ==
LOC: ER 16:49 → EEVIPCON 16:49 → GEROPSY 20:45
PROVIDERS: ADMIT Psychiatry & Neurology Psychiatry; ATTEND Psychiatry & Neurology Psychiatry
DX: F32.3 Major depressive disorder, single episode, severe with psychotic features (principal); E11.9 Type 2 diabetes mellitus without complications; G30.9 Alzheimer's disease, unspecified; F02.80 Dementia in other diseases classified elsewhere, unspecified severity, without behavioral disturbance, psychotic disturbance, mood disturbance, and anxiety; F23 Brief psychotic disorder; F01.50 Vascular dementia, unspecified severity, without behavioral disturbance, psychotic disturbance, mood disturbance, and anxiety; E21.3 Hyperparathyroidism, unspecified; E78.5 Hyperlipidemia, unspecified; F09 Unspecified mental disorder due to known physiological condition; F41.9 Anxiety disorder, unspecified; F63.9 Impulse disorder, unspecified; I10 Essential (primary) hypertension; Z87.81 Personal history of (healed) traumatic fracture; Z90.710 Acquired absence of both cervix and uterus; Z91.81 History of falling; Z96.642 Presence of left artificial hip joint; Z98.41 Cataract extraction status, right eye; Z98.42 Cataract extraction status, left eye; Z98.49 Cataract extraction status, unspecified eye; Z88.0 Allergy status to penicillin; Z86.73 Personal history of transient ischemic attack (TIA), and cerebral infarction without residual deficits
CPT/HCPCS: 36415; 70450; 80053; 80061; 80307; 81001; 82306; 82607; 82947; 83036; 83540; 83550; 83735; 83970; 84436; 84443; 84480; 84484; 85025; 86592; 86593; 93005; G0480; J1815; 99285-25; G0479